=== PATIENT | male | born 1970 | race African-American/Black ===

== ENCOUNTER 2017-09-09 08:25 | Emergency (ER) | payer BC ==
[~2017-09-09] VITALS: Ht 180.3 cm; Wt 142.9 kg
[2017-09-09 08:57] VITALS: BP 149/76
[2017-09-09] MEDS ORDERED: LIDOCAINE 1% PF 2 ML VIAL. INJ ONE (09:00)
[2017-09-09] MEDS ORDERED: SULF1TAB24 PO (09:23)
[2017-09-09] MEDS ORDERED: NAPR-683 PO (09:23)
--- NOTE | 2017-09-09 09:23 | PHYS DOC ---
Past Medical History Past Medical History: Hypertension Past Surgical History: Other Additional Past Surgical Histo: Lesion removed from head Additional Information: 0.5 PPD Alcohol Use: Occasionally Drug Use: None Adult General Chief Complaint Chief Complaint: ABSCESS HPI HPI Patient is a 46 year old male presents to the emergency department with a one- day history of abscess on the left medial thigh. Patient states he's had the abscess present for several weeks that comes and goes but last night it became more painful. He reports no fever. Review of Systems Review of Systems Constitutional: Denies fever or chills [] Eyes: Denies change in visual acuity, redness, or eye pain [] HENT: Denies nasal congestion or sore throat [] Respiratory: Denies cough or shortness of breath [] Cardiovascular: No additional information not addressed in HPI [] GI: Denies abdominal pain, nausea, vomiting, bloody stools or diarrhea [] : Denies dysuria or hematuria [] Musculoskeletal: Denies back pain or joint pain [] Integument: Abscess Neurologic: Denies headache, focal weakness or sensory changes [] Endocrine: Denies polyuria or polydipsia [] All other systems were reviewed and found to be within normal limits, except as documented in this note. Current Medications Current Medications Current Medications Medications (Trade) Dose Ordered Sig/Gina Start Time Stop Time Status Last Admin Dose Admin Lidocaine HCl (Xylocaine-Mpf 1% Vial) 2 ml 1X ONCE 09/09/17 09:00 09/09/17 09:02 DC 09/09/17 09:17 2 ML Allergies Allergies Allergies Coded Allergies Type Severity Reaction Last Updated Verified Penicillins Allergy Intermediate 05/30/15 Yes Physical Exam Physical Exam Constitutional: Well developed, well nourished, no acute distress, non-toxic appearance. [] Cardiovascular:Heart rate regular rhythm, no murmur [] Lungs & Thorax: Bilateral breath sounds clear to auscultation [] Skin: Medial thigh, 3 cm area of induration with mild erythema. There is a 1 cm central area of fluctuance. Lymph: no gross adenopathy Current Patient Data Vital Signs Vital Signs Date Time Temp Pulse Resp B/P (MAP) Pulse Ox O2 Delivery O2 Flow Rate FiO2 09/09/17 08:57 97.4 85 24 149/76 (100) 97 Room Air 97.4 EKG EKG [] Radiology/Procedures Radiology/Procedures [] Course & Med Decision Making Course & Med Decision Making Pertinent Labs and Imaging studies reviewed. (See chart for details) []Procedure Note: Area cleansed with Betadine, anesthetized with 2 mL of 1% lidocaine. #11 blade to incise the abscess for small amount of purulent discharge. Copiously irrigated, dressing applied Patient tolerated well. Dragon Disclaimer Dragon Disclaimer This electronic medical record was generated, in whole or in part, using a voice recognition dictation system. Departure Departure Impression: Primary Impression: Abscess Disposition: HOME, SELF-CARE Condition: STABLE Referrals: UNKNOWN PCP NAME (PCP) [facility] Patient Instructions: Abscess, Care After Scripts Naproxen (NAPROSYN) 500 Mg Tablet 500 MG PO BID, #20 TAB Prov: ANAIS ARTHUR APRN 09/09/17 Sulfamethoxazole/Trimethoprim (BACTRIM DS TABLET) 1 Each Tablet 1 TAB PO BID, #20 TAB Prov: ANAIS ARTHUR APRN 09/09/17 ANAIS ATRHUR APRN Sep 09, 2017 09:23
== END 2017-09-09 09:39 | disposition home or self-care (01) ==
LOC: ER 08:25
DX: L02.416 Cutaneous abscess of left lower limb (principal); I10 Essential (primary) hypertension; F17.200 Nicotine dependence, unspecified, uncomplicated; Z88.0 Allergy status to penicillin
CPT/HCPCS: 10060; 99283-25

== ENCOUNTER 2018-01-02 17:39 | Emergency (ER) | payer SELFPAY ==
[2018-01-02 18:05] LABS: ADD MAN DIFF? NO
[2018-01-02 18:09] LABS: BASO # 0.1 x10^3/uL (0.0-0.2); BASO % 1 % (0-3); EOS # 0.1 x10^3/uL (0.0-0.7); EOS % 1 % (0-3); HEMATOCRIT 48.1 % (39.0-53.0); HEMOGLOBIN 16.1 g/dL (13.0-17.5); LYMPH % 33 % (24-48); MEAN CORPUSCULAR HEMOGLOBIN 29 pg (25-35); MEAN CORPUSCULAR HGB CONC 33 g/dL (31-37); MEAN CORPUSCULAR VOLUME 87 fL (79-100); MONO # 0.5 x10^3/uL (0.0-1.1); MONO % 6 % (0-9); NEUT # 5.5 x10^3uL (1.8-7.7); NEUT % 60 % (31-73); PLATELET COUNT 227 x10^3/uL (140-400); RED BLOOD COUNT 5.53 x10^6/uL (4.30-5.70); RED CELL DISTRIBUTION WIDTH 14.9 % (11.5-14.5); WHITE BLOOD COUNT 9.2 x10^3/uL (4.0-11.0)
[2018-01-02 18:15] LABS: ANION GAP 10 (6-14); BLOOD UREA NITROGEN 18 mg/dL (8-26); BUN/CREATININE RATIO 13 (6-20); CALCIUM 9.5 mg/dL (8.5-10.1); CARBON DIOXIDE 27 mmol/L (21-32); CHLORIDE 101 mmol/L (98-107); CREATININE 1.4 mg/dL (0.7-1.3); GFR 65.7; GLUCOSE 107 mg/dL (70-99); POTASSIUM 3.8 mmol/L (3.5-5.1); SODIUM 138 mmol/L (136-145)
[2018-01-02] MEDS: IV NORMAL SALINE 1000ML BAG 1,000 ML IV (18:15)
[2018-01-02] MEDS: ONDANSETRON PF 4 MG/2 ML VIAL. IV (18:15)
[2018-01-02 18:21] LABS: ALBUMIN 3.9 g/dL (3.4-5.0); ALBUMIN/GLOBULIN RATIO 0.9 (1.0-1.7); ALK PHOS 60 U/L (46-116); ALT (SGPT) 38 U/L (16-63); AST (SGOT) 23 U/L (15-37); LIPASE 241 U/L (73-393); TOTAL BILIRUBIN 0.5 mg/dL (0.2-1.0); TOTAL PROTEIN 8.3 g/dL (6.4-8.2)
[2018-01-02 19:03] LABS: BILIRUBIN,URINE NEGATIVE (NEG); CLARITY,URINE CLEAR; COLOR,URINE YELLOW; GLUCOSE,URINE NEGATIVE (NEG); NITRITE,URINE NEGATIVE (NEG); PH,URINE 5.5; PROTEIN,URINE NEGATIVE (NEG-TRACE); UROBILINOGEN,URINE 0.2 mg/dL (0.2 mg/dL)
[2018-01-02 19:14] LABS: BACTERIA,URINE 0 /HPF (0-FEW); RBC,URINE 0 /HPF (0-2); WBC,URINE OCC /HPF (0-4)
== END 2018-01-02 20:31 | disposition home or self-care (01) ==
LOC: ER 17:39
DX: R11.2 Nausea with vomiting, unspecified (principal); R19.7 Diarrhea, unspecified; I10 Essential (primary) hypertension; E66.9 Obesity, unspecified; Z88.0 Allergy status to penicillin; Z68.42 Body mass index [BMI] 45.0-49.9, adult
CPT/HCPCS: 36415; 80053; 81001; 83690; 85025; 96361; 96374; 99284-25; J2405; J7030

== ENCOUNTER 2018-04-29 20:17 | Emergency (ER) | payer BC ==
[2018-04-29 21:27] LABS: BILIRUBIN,URINE NEGATIVE (NEG); CLARITY,URINE CLEAR; COLOR,URINE YELLOW; GLUCOSE,URINE NEGATIVE (NEG); NITRITE,URINE NEGATIVE (NEG); PH,URINE 5.5; PROTEIN,URINE NEGATIVE (NEG-TRACE); UROBILINOGEN,URINE 0.2 mg/dL (0.2 mg/dL)
[2018-04-29] MEDS: IV NORMAL SALINE 1000ML BAG 1,000 ML IV (21:30)
[2018-04-29 21:36] LABS: ADD MAN DIFF? NO
[2018-04-29 21:41] LABS: BASO % 1 % (0-3); EOS # 0.1 x10^3/uL (0.0-0.7); EOS % 1 % (0-3); HEMATOCRIT 45.5 % (39.0-53.0); HEMOGLOBIN 15.1 g/dL (13.0-17.5); LYMPH # 2.5 x10^3/uL (1.0-4.8); LYMPH % 24 % (24-48); MEAN CORPUSCULAR HEMOGLOBIN 29 pg (25-35); MEAN CORPUSCULAR HGB CONC 33 g/dL (31-37); MEAN CORPUSCULAR VOLUME 86 fL (79-100); MONO # 0.6 x10^3/uL (0.0-1.1); MONO % 6 % (0-9); NEUT # 7.3 x10^3uL (1.8-7.7); NEUT % 69 % (31-73); PLATELET COUNT 206 x10^3/uL (140-400); RED BLOOD COUNT 5.28 x10^6/uL (4.30-5.70); RED CELL DISTRIBUTION WIDTH 14.2 % (11.5-14.5); WHITE BLOOD COUNT 10.5 x10^3/uL (4.0-11.0)
[2018-04-29 21:43] LABS: BACTERIA,URINE 0 /HPF (0-FEW); RBC,URINE 20-40 /HPF (0-2); WBC,URINE 0 /HPF (0-4)
[2018-04-29 21:50] LABS: ANION GAP 9 (6-14); BLOOD UREA NITROGEN 21 mg/dL (8-26); BUN/CREATININE RATIO 16 (6-20); CALCIUM 8.9 mg/dL (8.5-10.1); CARBON DIOXIDE 25 mmol/L (21-32); CHLORIDE 103 mmol/L (98-107); CREATININE 1.3 mg/dL (0.7-1.3); GFR 71.6; GLUCOSE 141 mg/dL (70-99); POTASSIUM 4.2 mmol/L (3.5-5.1); SODIUM 137 mmol/L (136-145)
[2018-04-29 21:55] LABS: ALBUMIN 3.4 g/dL (3.4-5.0); ALBUMIN/GLOBULIN RATIO 0.9 (1.0-1.7); ALK PHOS 63 U/L (46-116); ALT (SGPT) 30 U/L (16-63); AST (SGOT) 22 U/L (15-37); TOTAL BILIRUBIN 0.4 mg/dL (0.2-1.0); TOTAL PROTEIN 7.3 g/dL (6.4-8.2)
== END 2018-04-29 23:33 | disposition home or self-care (01) ==
LOC: ER 20:17
DX: N40.0 Benign prostatic hyperplasia without lower urinary tract symptoms (principal); I10 Essential (primary) hypertension; R39.198 Other difficulties with micturition; R31.9 Hematuria, unspecified; F32.9 Major depressive disorder, single episode, unspecified; K21.9 Gastro-esophageal reflux disease without esophagitis; Z88.0 Allergy status to penicillin
CPT/HCPCS: 36415; 51701; 76870; 80053; 81001; 85025; 99285-25; J7030

== ENCOUNTER 2019-02-23 10:49 | Inpatient (IN) | payer BC ==
[~2019-02-23] VITALS: Ht 180.3 cm; Wt 147.6 kg
[~2019-02-23 10:49] MED LIST: NAPR-683 PO; ONDA4TAB12 PO; SULF1TAB24 PO; TAMS0.4C97 PO
[2019-02-23] MEDS ORDERED: IPRATRPIUM/ALBUTEROL 0.5/2.5MG 3 ML NEBU. NEB ONE (11:15)
[2019-02-23] MEDS ORDERED: methylPREDNISolone SOD SUCC PF 125 MG/2 ML VIAL. IV ONE (11:15)
[2019-02-23] MEDS ORDERED: MORPHINE SULFATE 4 MG/ML VIAL. IV/SQ PRN (11:15)
[2019-02-23] MEDS ORDERED: ASPIRIN 325 MG TABLET PO ONE (11:15)
[2019-02-23 11:17] LABS: BASO # 0.1 x10^3/uL (0.0-0.2); BASO % 1 % (0-3); EOS # 0.1 x10^3/uL (0.0-0.7); EOS % 1 % (0-3); HEMATOCRIT 48.6 % (39.0-53.0); HEMOGLOBIN 16.2 g/dL (13.0-17.5); LYMPH # 2.5 x10^3/uL (1.0-4.8); LYMPH % 31 % (24-48); MEAN CORPUSCULAR HEMOGLOBIN 29 pg (25-35); MEAN CORPUSCULAR HGB CONC 33 g/dL (31-37); MEAN CORPUSCULAR VOLUME 87 fL (79-100); MONO # 0.6 x10^3/uL (0.0-1.1); MONO % 8 % (0-9); NEUT # 4.8 x10^3uL (1.8-7.7); NEUT % 59 % (31-73); PLATELET COUNT 200 x10^3/uL (140-400); RED BLOOD COUNT 5.61 x10^6/uL (4.30-5.70); RED CELL DISTRIBUTION WIDTH 14.5 % (11.5-14.5); WHITE BLOOD COUNT 8.1 x10^3/uL (4.0-11.0)
--- NOTE | 2019-02-23 11:23 | EKG ---
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
[2019-02-23 11:31] LABS: PROTHROMBIN TIME PATIENT 12.1 SEC (11.7-14.0)
[2019-02-23 11:34] LABS: CALCIUM 9.4 mg/dL (8.5-10.1); CREATININE 1.3 mg/dL (0.7-1.3); GFR 71.3; POTASSIUM 4.4 mmol/L (3.5-5.1)
[2019-02-23 11:39] LABS: D-DIMER 0.37 ug/mlFEU (0.00-0.50)
[2019-02-23 11:44] LABS: BASE EXCESS COOX 0 mmol/L (-3-3); HCO3 COOX 23 mmol/L (21-28); METHEMOGLOBIN 0.5 % (0.0-1.9); OXYHEMOGLOBIN 93.1 %; PCO2 COOX 34 mmHg (35-46); PO2 COOX 88 mmHg (75-108); SAT O2 COOX 97 % (92-99)
[2019-02-23 11:47] LABS: ALBUMIN 3.6 g/dL (3.4-5.0); TOTAL BILIRUBIN 0.3 mg/dL (0.2-1.0); TOTAL PROTEIN 7.3 g/dL (6.4-8.2)
--- NOTE | 2019-02-23 11:48 | RAD ---
PORTABLE CHEST 1V History: Shortness of breath No comparison Lung volumes. This likely accounts for mild cardiac silhouette widening. No evidence of pneumothorax, pleural effusion or infiltrate. IMPRESSION: Low lung volumes, no evidence of consolidating infiltrate. Electronically signed by: Faizan Campos MD (02/23/2019 11:45 AM) [facility]
--- NOTE | 2019-02-23 12:32 | PHYS DOC ---
Past Medical History Past Medical History: Depression, Diabetes-Type II, GERD, Hypertension Past Surgical History: Other Additional Past Surgical Histo: Lesion removed from head, LEFT HAND Additional Information: 4 CIGARETTES A DAY Alcohol Use: Occasionally Drug Use: None Adult General Chief Complaint Chief Complaint: SHORTNESS OF BREATH HPI HPI Patient is a 48 year old male with history of smoking, diabetes, hypertension, acid reflex, who presents to the ED today complaining of shortness of breath that woke him up at 4 AM this morning. Patient denies anything specifically excessive bleeding or relieving his symptoms. Denies any chest pain. He states he has had similar symptoms a couple years ago when his blood pressure was high but he is currently on blood pressure medications. Review of Systems Review of Systems Constitutional: Denies fever or chills [] Eyes: Denies change in visual acuity, redness, or eye pain [] HENT: Denies nasal congestion or sore throat [] Respiratory: Reports shortness of breath. Denies cough Cardiovascular: No additional information not addressed in HPI [] GI: Denies abdominal pain, nausea, vomiting, bloody stools or diarrhea [] : Denies dysuria or hematuria [] Musculoskeletal: Denies back pain or joint pain [] Integument: Denies rash or skin lesions [] Neurologic: Denies headache, focal weakness or sensory changes [] All other systems were reviewed and found to be within normal limits, except as documented in this note. Current Medications Current Medications Current Medications Medications (Trade) Dose Ordered Sig/Gina Start Time Stop Time Status Last Admin Dose Admin Albuterol/ Ipratropium (Duoneb) 3 ml 1X ONCE 02/23/19 11:15 02/23/19 11:16 DC 02/23/19 11:19 3 ML Aspirin (Jonathan Aspirin) 325 mg 1X ONCE 02/23/19 11:15 02/23/19 11:16 DC 02/23/19 11:25 325 MG Methylprednisolone Sodium Succinate (SOLU-Medrol 125MG VIAL) 125 mg 1X ONCE 02/23/19 11:15 02/23/19 11:16 DC 02/23/19 11:25 125 MG Morphine Sulfate (Morphine Sulfate) 4 mg PRN Q15MIN PRN 02/23/19 11:15 02/24/19 11:14 02/23/19 11:33 4 MG Allergies Allergies Allergies Coded Allergies Type Severity Reaction Last Updated Verified Penicillins Allergy Intermediate 05/30/15 Yes Physical Exam Physical Exam Constitutional: Obese patient no acute distress, non-toxic appearance. [] HENT: Normocephalic, atraumatic, bilateral external ears normal, oropharynx moist, no oral exudates, nose normal. [] Eyes: PERRLA, EOMI, conjunctiva normal, no discharge. [] Neck: Normal range of motion, no tenderness, supple, no stridor. [] Cardiovascular:Heart rate regular rhythm, no murmur [] Lungs & Thorax: Slight Decrease air movement to posterior lung bases. Abdomen: Bowel sounds normal, soft, no tenderness, no masses, no pulsatile masses. [] Skin: Warm, dry, no erythema, no rash. [] Back: No tenderness, no CVA tenderness. [] Extremities: No tenderness, no cyanosis, no clubbing, ROM intact, no edema. [] Neurologic: Alert and oriented X 3, normal motor function, normal sensory function, no focal deficits noted. [] Psychologic: Affect normal, judgement normal, mood normal. [] Current Patient Data Vital Signs Vital Signs Date Time Temp Pulse Resp B/P (MAP) Pulse Ox O2 Delivery O2 Flow Rate FiO2 02/23/19 11:56 106 27 176/83 (114) 95 Room Air 02/23/19 10:51 98.3 98.3 Lab Values Laboratory Tests Test 02/23/19 11:03 02/23/19 11:10 O2 Saturation 97 % (92-99) Arterial Blood pH 7.45 (7.35-7.45) Arterial Blood pCO2 at Patient Temp 34 mmHg (35-46) L Arterial Blood pO2 at Patient Temp 88 mmHg (75-108) Arterial Blood HCO3 23 mmol/L (21-28) Arterial Blood Base Excess 0 mmol/L (-3-3) Oxyhemoglobin 93.1 % Methemoglobin 0.5 % (0.0-1.9) Carbon Monoxide, Quantitative 3.8 % (0.0-1.9) H FiO2 21 White Blood Count 8.1 x10^3/uL (4.0-11.0) Red Blood Count 5.61 x10^6/uL (4.30-5.70) Hemoglobin 16.2 g/dL (13.0-17.5) Hematocrit 48.6 % (39.0-53.0) Mean Corpuscular Volume 87 fL (79-100) Mean Corpuscular Hemoglobin 29 pg (25-35) Mean Corpuscular Hemoglobin Concent 33 g/dL (31-37) Red Cell Distribution Width 14.5 % (11.5-14.5) Platelet Count 200 x10^3/uL (140-400) Neutrophils (%) (Auto) 59 % (31-73) Lymphocytes (%) (Auto) 31 % (24-48) Monocytes (%) (Auto) 8 % (0-9) Eosinophils (%) (Auto) 1 % (0-3) Basophils (%) (Auto) 1 % (0-3) Neutrophils # (Auto) 4.8 x10^3uL (1.8-7.7) Lymphocytes # (Auto) 2.5 x10^3/uL (1.0-4.8) Monocytes # (Auto) 0.6 x10^3/uL (0.0-1.1) Eosinophils # (Auto) 0.1 x10^3/uL (0.0-0.7) Basophils # (Auto) 0.1 x10^3/uL (0.0-0.2) Prothrombin Time 12.1 SEC (11.7-14.0) Prothrombin Time INR 0.9 (0.8-1.1) D-Dimer (Nasrin) 0.37 ug/mlFEU (0.00-0.50) Sodium Level 139 mmol/L (136-145) Potassium Level 4.4 mmol/L (3.5-5.1) Chloride Level 103 mmol/L (98-107) Carbon Dioxide Level 25 mmol/L (21-32) Anion Gap 11 (6-14) Blood Urea Nitrogen 19 mg/dL (8-26) Creatinine 1.3 mg/dL (0.7-1.3) Estimated GFR (Cockcroft-Gault) 71.3 BUN/Creatinine Ratio 15 (6-20) Glucose Level 108 mg/dL (70-99) H Lactic Acid Level 1.4 mmol/L (0.4-2.0) Calcium Level 9.4 mg/dL (8.5-10.1) Magnesium Level 2.0 mg/dL (1.8-2.4) Total Bilirubin 0.3 mg/dL (0.2-1.0) Aspartate Amino Transferase (AST) 18 U/L (15-37) Alanine Aminotransferase (ALT) 28 U/L (16-63) Alkaline Phosphatase 72 U/L (46-116) Creatine Kinase 232 U/L (39-308) Creatine Kinase MB (Mass) 1.8 ng/mL (0.0-3.6) Creatine Kinase MB Relative Index 0.8 % (0-4) Troponin I Quantitative < 0.017 ng/mL (0.000-0.055) RS-Itf-A-Type Natriuretic Peptide 14 pg/mL (0-124) Total Protein 7.3 g/dL (6.4-8.2) Albumin 3.6 g/dL (3.4-5.0) Albumin/Globulin Ratio 1.0 (1.0-1.7) Thyroid Stimulating Hormone (TSH) 0.654 uIU/mL (0.358-3.74) Laboratory Tests 02/23/19 11:10 Laboratory Tests 02/23/19 11:10 EKG EKG 10:[address] Kennedy sinus rhythm HR 96 no STEMI Radiology/Procedures Radiology/Procedures []PROCEDURE: PORTABLE CHEST 1V PORTABLE CHEST 1V History: Shortness of breath No comparison Lung volumes. This likely accounts for mild cardiac silhouette widening. No evidence of pneumothorax, pleural effusion or infiltrate. IMPRESSION: Low lung volumes, no evidence of consolidating infiltrate. Electronically signed by: Faizan Campos MD (02/23/2019 11:45 AM) [facility] DICTATED and SIGNED BY: FAIZAN CAMPOS MD DATE: 02/23/19 1140 Course & Med Decision Making Course & Med Decision Making Pertinent Labs and Imaging studies reviewed. (See chart for details) This is a 48-year-old male patient presented to the ED today complaining of shortness of breath since 4 AM. Patient ambulated from the waiting area to his room in no distress, O2 sats on arrival to the room 196% on room air, blood pressure was 182/100 he states he just took his blood pressure medicine prior to coming to the ED. Temperature 98.3 respiration 26, heart rate 70. EKG is negative for any acute findings, labs are negative for any acute findings including a normal d-dimer, chest x-ray is negative for pneumonia. Patient was given a DuoNeb treatment. Given Solu-Medrol. I went to re-evaluate his states he is feeling better he was willing to go home. As soon as i walked out of his room he called me back to the room requesting to be admitted. He states is afraid he can go home and something bad might happen like passing out. Spoke with Dr. Aldridge who accepted patient for admission. Encouraged to consider smoking cessation Dragon Disclaimer Dragon Disclaimer This electronic medical record was generated, in whole or in part, using a voice recognition dictation system. Departure Departure Impression: Primary Impression: Shortness of breath Additional Impressions: Hypertension Smoking addiction Disposition: ADMITTED INPATIENT Condition: STABLE Referrals: UNKNOWN PCP NAME (PCP) Problem Qualifiers Additional Impressions: Hypertension Hypertension type: unspecified Qualified Codes: I10 - Essential (primary) hypertension GARCÍA DIANE APRN Feb 23, 2019 12:32
[2019-02-23] MEDS ORDERED: ACETAMINOPHEN 325 MG TABLET. PO PRN ×2 (12:45→17:15)
[2019-02-23] MEDS ORDERED: ONDANSETRON PF 4 MG/2 ML VIAL. IV PRN (12:45)
[2019-02-23] MEDS: IPRATRPIUM/ALBUTEROL 0.5/2.5MG 3 ML NEBU. NEB SCH ×3 (13:00→20:00)
[2019-02-23 13:46] LABS: BARBITURATES NEG (NEG); BENZODIAZEPINES NEG (NEG); CANNABINOIDS NEG (NEG); COCAINE POS (NEG); METHADONE NEG (NEG); OPIATES POS (NEG); PHENCYCLIDINE NEG (NEG)
[2019-02-23 13:56] LABS: AMPHETAMINE/METHAMPHETAMINE NEG (NEG)
[2019-02-23 14:00] VITALS: BP 162/102
[2019-02-23] MEDS ORDERED: ENOXAPARIN 40 MG/0.4 ML SYRINGE. SQ SCH (16:00)
--- NOTE | 2019-02-23 16:04 | PDOC1 ---
History and Physical Date of Admission Date of Admission DATE: 02/23/19 TIME: 15:59 Source Source: Caregiver (), Chart review, Patient History of Present Illness History of Present Illness Mr. Nunez, is a 48 year old male admit for acute dyspnea, some chest pain, and transient left sided weakness. he has hx of poor htn control, tobacco use, and GERD, Today, acute shortness of breath that woke him up at 4 AM this morning. He later had sudden left shoulder pain, and then left sided weakness of his arm and leg that is now better, poor mobility for about 20 minutes. he reports having this happen on his right side about a month ago. he reports his BP has been poorly controlled PCP has been Dr. More at [place] Past Medical History Cardiovascular: HTN Pulmonary: No pertinent hx Psych: No pertinent hx Musculoskeletal: Osteoarthritis Dermatology: No pertinent hx Family History Family History: Coronary Artery Disease, Heart Disease, Stroke Family History: Parent, Grandparents Social History Smoke: <1 pack per day ALCOHOL: none Drugs: Cocaine Current Problem List Problem List Problems Medical Problems: (1) Hypertension Status: Acute (2) Shortness of breath Status: Acute (3) Smoking addiction Status: Acute Current Medications Current Medications Current Medications Albuterol/ Ipratropium (Duoneb) 3 ml 1X ONCE NEB Last administered on 02/23/19at 11:19; Start 02/23/19 at 11:15; Stop 02/23/19 at 11:16; Status DC Aspirin (Jonathan Aspirin) 325 mg 1X ONCE PO Last administered on 02/23/19at 11:25; Start 02/23/19 at 11:15; Stop 02/23/19 at 11:16; Status DC Morphine Sulfate (Morphine Sulfate) 4 mg PRN Q15MIN PRN IV/SQ PAIN GREATER THAN 3/10 Last administered on 02/23/19at 11:33; Start 02/23/19 at 11:15; Stop 02/24/19 at 11:14 Methylprednisolone Sodium Succinate (SOLU-Medrol 125MG VIAL) 125 mg 1X ONCE IV Last administered on 02/23/19at 11:25; Start 02/23/19 at 11:15; Stop 02/23/19 at 11:16; Status DC Ondansetron HCl (Zofran) 4 mg PRN Q8HRS PRN IV NAUSEA/VOMITING; Start 02/23/19 at 12:45; Stop 02/24/19 at 12:44 Acetaminophen (Tylenol) 650 mg PRN Q4HRS PRN PO FEVER; Start 02/23/19 at 12:45; Stop 02/24/19 at 12:44 Albuterol/ Ipratropium (Duoneb) 3 ml RTQID NEB Last administered on 02/23/19at 15:34; Start 02/23/19 at 13:00; Stop 02/24/19 at 12:59 Prednisone (Prednisone) 40 mg DAILY PO ; Start 02/24/19 at 09:00 Active Scripts Active Flomax (Tamsulosin Hcl) 0.4 Mg Cap.er.24h 1 Cap PO DAILY 30 Days Ondansetron Odt (Ondansetron) 4 Mg Tab.rapdis 1 Tab PO PRN Q6-8HRS Naprosyn (Naproxen) 500 Mg Tablet 500 Mg PO BID Bactrim Ds Tablet (Sulfamethoxazole/Trimethoprim) 1 Each Tablet 1 Tab PO BID Reported No Known Medications Prior To Admisstion (Info) Each 1 Each Allergies Allergies: Coded Allergies: Penicillins (Verified Allergy, Intermediate, 05/30/15) ROS General: YES: Chills PSYCHOLOGICAL ROS: YES: Anxiety, Sleep disturbances; No: Behavioral Disorder, Concentration difficultie, Decreased libido, Depression, Disorientation, Hallucinations, Hostility, Irritablity, Memory difficulties, Mood Swings, Obsessive thoughts, Other Eyes: No Blurry vision, No Decreased vision, No Double vision, No Dry eyes, No Excessive tearing, No Eye Pain, No Itchy Eyes, No Loss of vision, No Photophobia, No Scotomata, No Uses contacts, No Uses glasses, No Other HEENT: No: Heacaches, Visual Changes, Hearing change, Nasal congestion, Nasal discharge, Oral lesions, Sinus pain, Sore Throat, Epistaxis, Sneezing, Snoring, Tinnitus, Vertigo, Vocal changes, Other Respiratory: No: Cough, Hemoptysis, Orthopnea, Pleuritic Pain, Shortness of breath, SOB with excertion, Sputum Changes, Stridor, Tachypnea, Wheezing, Other Cardiovascular: yes Chest Pain; No Palpitations, No Orthopnea, No Paroxysmal Noc. Dyspnea, No Edema, No Lt Headedness, No Other Gastrointestinal: Yes Nausea; No Vomiting, No Abdominal Pain, No Diarrhea, No Constipation, No Melena, No Hematochezia, No Other Genitourinary: No Dysuria, No Frequency, No Incontinence, No Hematuria, No Retention, No Discharge, No Urgency, No Pain, No Flank Pain, No Other, No , No , No , No , No , No , No Musculoskeletal: Yes Muscular Weakness (left side); No Gait Disturbance, No Joint Pain, No Joint Stiffness, No Joint Swelling, No Muscle Pain, No Pain In:, No Swelling In:, No Other Neurological: No Behavorial Changes, No Bowel/Bladder ControlChng, No Confusion, No Dizziness, No Gait Disturbance, No Headaches, No Impaired Coord/balance, No Memory Loss, No Numbness/Tingling, No Seizures, No Speech Problems, No Tremors, No Visual Changes, No Weakness, No Other Skin: Yes Dry Skin; No Eczema, No Hair Changes, No Lumps, No Mole Changes, No Mottling, No Nail Changes, No Pruritus, No Rash, No Skin Lesion Changes, No Other, No Acne Physical Exam General: Alert, Oriented X3, Cooperative, No acute distress HEENT: Atraumatic, PERRLA, Mucous membr. moist/pink Lungs: Clear to auscultation, Normal air movement Heart: S1S2, RRR, no gallops Abdomen: Normal bowel sounds, Soft (very obese, ) Extremities: No clubbing, No edema, Normal pulses Skin: No breakdown Neuro: Normal speech, Normal tone, Sensation intact, Cranial nerves 3-12 NL Psych/Mental Status: Mental status NL, Mood NL Vitals Vitals Vital Signs Date Time Temp Pulse Resp B/P (MAP) Pulse Ox O2 Delivery O2 Flow Rate FiO2 02/23/19 15:40 95 Room Air 02/23/19 14:00 98.2 82 16 162/102 (122) 98.2 Labs Labs Laboratory Tests Test 02/23/19 11:03 02/23/19 11:10 02/23/19 13:15 02/23/19 15:01 O2 Saturation 97 % (92-99) Arterial Blood pH 7.45 (7.35-7.45) Arterial Blood pCO2 at Patient Temp 34 mmHg (35-46) Arterial Blood pO2 at Patient Temp 88 mmHg (75-108) Arterial Blood HCO3 23 mmol/L (21-28) Arterial Blood Base Excess 0 mmol/L (-3-3) Oxyhemoglobin 93.1 % Methemoglobin 0.5 % (0.0-1.9) Carbon Monoxide, Quantitative 3.8 % (0.0-1.9) FiO2 21 White Blood Count 8.1 x10^3/uL (4.0-11.0) Red Blood Count 5.61 x10^6/uL (4.30-5.70) Hemoglobin 16.2 g/dL (13.0-17.5) Hematocrit 48.6 % (39.0-53.0) Mean Corpuscular Volume 87 fL (79-100) Mean Corpuscular Hemoglobin 29 pg (25-35) Mean Corpuscular Hemoglobin Concent 33 g/dL (31-37) Red Cell Distribution Width 14.5 % (11.5-14.5) Platelet Count 200 x10^3/uL (140-400) Neutrophils (%) (Auto) 59 % (31-73) Lymphocytes (%) (Auto) 31 % (24-48) Monocytes (%) (Auto) 8 % (0-9) Eosinophils (%) (Auto) 1 % (0-3) Basophils (%) (Auto) 1 % (0-3) Neutrophils # (Auto) 4.8 x10^3uL (1.8-7.7) Lymphocytes # (Auto) 2.5 x10^3/uL (1.0-4.8) Monocytes # (Auto) 0.6 x10^3/uL (0.0-1.1) Eosinophils # (Auto) 0.1 x10^3/uL (0.0-0.7) Basophils # (Auto) 0.1 x10^3/uL (0.0-0.2) Prothrombin Time 12.1 SEC (11.7-14.0) Prothromb Time International Ratio 0.9 (0.8-1.1) D-Dimer (Nasrin) 0.37 ug/mlFEU (0.00-0.50) Sodium Level 139 mmol/L (136-145) Potassium Level 4.4 mmol/L (3.5-5.1) Chloride Level 103 mmol/L (98-107) Carbon Dioxide Level 25 mmol/L (21-32) Anion Gap 11 (6-14) Blood Urea Nitrogen 19 mg/dL (8-26) Creatinine 1.3 mg/dL (0.7-1.3) Estimated GFR (Cockcroft-Gault) 71.3 BUN/Creatinine Ratio 15 (6-20) Glucose Level 108 mg/dL (70-99) Lactic Acid Level 1.4 mmol/L (0.4-2.0) 1.6 mmol/L (0.4-2.0) Calcium Level 9.4 mg/dL (8.5-10.1) Magnesium Level 2.0 mg/dL (1.8-2.4) Total Bilirubin 0.3 mg/dL (0.2-1.0) Aspartate Amino Transf (AST/SGOT) 18 U/L (15-37) Alanine Aminotransferase (ALT/SGPT) 28 U/L (16-63) Alkaline Phosphatase 72 U/L (46-116) Creatine Kinase 232 U/L (39-308) Creatine Kinase MB (Mass) 1.8 ng/mL (0.0-3.6) Creatine Kinase MB Relative Index 0.8 % (0-4) Troponin I Quantitative < 0.017 ng/mL (0.000-0.055) YH-Dcc-H-Type Natriuretic Peptide 14 pg/mL (0-124) Total Protein 7.3 g/dL (6.4-8.2) Albumin 3.6 g/dL (3.4-5.0) Albumin/Globulin Ratio 1.0 (1.0-1.7) Thyroid Stimulating Hormone (TSH) 0.654 uIU/mL (0.358-3.74) Urine Opiates Screen Pos (NEG) Urine Methadone Screen Neg (NEG) Urine Barbiturates Neg (NEG) Urine Phencyclidine Screen Neg (NEG) Urine Amphetamine/Methamphetamine Neg (NEG) Urine Benzodiazepines Screen Neg (NEG) Urine Cocaine Screen Pos (NEG) Urine Cannabinoids Screen Neg (NEG) Urine Ethyl Alcohol Neg (NEG) Laboratory Tests Test 02/23/19 11:03 02/23/19 11:10 02/23/19 13:15 02/23/19 15:01 O2 Saturation 97 % (92-99) Arterial Blood pH 7.45 (7.35-7.45) Arterial Blood pCO2 at Patient Temp 34 mmHg (35-46) Arterial Blood pO2 at Patient Temp 88 mmHg (75-108) Arterial Blood HCO3 23 mmol/L (21-28) Arterial Blood Base Excess 0 mmol/L (-3-3) Oxyhemoglobin 93.1 % Methemoglobin 0.5 % (0.0-1.9) Carbon Monoxide, Quantitative 3.8 % (0.0-1.9) FiO2 21 White Blood Count 8.1 x10^3/uL (4.0-11.0) Red Blood Count 5.61 x10^6/uL (4.30-5.70) Hemoglobin 16.2 g/dL (13.0-17.5) Hematocrit 48.6 % (39.0-53.0) Mean Corpuscular Volume 87 fL (79-100) Mean Corpuscular Hemoglobin 29 pg (25-35) Mean Corpuscular Hemoglobin Concent 33 g/dL (31-37) Red Cell Distribution Width 14.5 % (11.5-14.5) Platelet Count 200 x10^3/uL (140-400) Neutrophils (%) (Auto) 59 % (31-73) Lymphocytes (%) (Auto) 31 % (24-48) Monocytes (%) (Auto) 8 % (0-9) Eosinophils (%) (Auto) 1 % (0-3) Basophils (%) (Auto) 1 % (0-3) Neutrophils # (Auto) 4.8 x10^3uL (1.8-7.7) Lymphocytes # (Auto) 2.5 x10^3/uL (1.0-4.8) Monocytes # (Auto) 0.6 x10^3/uL (0.0-1.1) Eosinophils # (Auto) 0.1 x10^3/uL (0.0-0.7) Basophils # (Auto) 0.1 x10^3/uL (0.0-0.2) Prothrombin Time 12.1 SEC (11.7-14.0) Prothromb Time International Ratio 0.9 (0.8-1.1) D-Dimer (Nasrin) 0.37 ug/mlFEU (0.00-0.50) Sodium Level 139 mmol/L (136-145) Potassium Level 4.4 mmol/L (3.5-5.1) Chloride Level 103 mmol/L (98-107) Carbon Dioxide Level 25 mmol/L (21-32) Anion Gap 11 (6-14) Blood Urea Nitrogen 19 mg/dL (8-26) Creatinine 1.3 mg/dL (0.7-1.3) Estimated GFR (Cockcroft-Gault) 71.3 BUN/Creatinine Ratio 15 (6-20) Glucose Level 108 mg/dL (70-99) Lactic Acid Level 1.4 mmol/L (0.4-2.0) 1.6 mmol/L (0.4-2.0) Calcium Level 9.4 mg/dL (8.5-10.1) Magnesium Level 2.0 mg/dL (1.8-2.4) Total Bilirubin 0.3 mg/dL (0.2-1.0) Aspartate Amino Transf (AST/SGOT) 18 U/L (15-37) Alanine Aminotransferase (ALT/SGPT) 28 U/L (16-63) Alkaline Phosphatase 72 U/L (46-116) Creatine Kinase 232 U/L (39-308) Creatine Kinase MB (Mass) 1.8 ng/mL (0.0-3.6) Creatine Kinase MB Relative Index 0.8 % (0-4) Troponin I Quantitative < 0.017 ng/mL (0.000-0.055) VI-Tgf-X-Type Natriuretic Peptide 14 pg/mL (0-124) Total Protein 7.3 g/dL (6.4-8.2) Albumin 3.6 g/dL (3.4-5.0) Albumin/Globulin Ratio 1.0 (1.0-1.7) Thyroid Stimulating Hormone (TSH) 0.654 uIU/mL (0.358-3.74) Urine Opiates Screen Pos (NEG) Urine Methadone Screen Neg (NEG) Urine Barbiturates Neg (NEG) Urine Phencyclidine Screen Neg (NEG) Urine Amphetamine/Methamphetamine Neg (NEG) Urine Benzodiazepines Screen Neg (NEG) Urine Cocaine Screen Pos (NEG) Urine Cannabinoids Screen Neg (NEG) Urine Ethyl Alcohol Neg (NEG) VTE Prophylaxis Ordered VTE Prophylaxis Devices: No VTE Pharmacological Prophylaxi: Yes Assessment/Plan Assessment/Plan chest pain, seems more costochrondritis than angina, left sided weakness, transient hemiparesis of arm and leg, now improved, TIA, consult neuro and workup morbid obesity, BMI 46 tobacco use disorder cocaine abuse EVELIO Peterson MD Feb 23, 2019 16:04
[2019-02-23] MEDS ORDERED: PANT20TA2 PO (16:12)
[2019-02-23] MEDS ORDERED: AMIT25TA PO (16:12)
[2019-02-23] MEDS ORDERED: METF500T16 PO (16:12)
[2019-02-23] MEDS ORDERED: hydrALAZINE 20 MG/ML VIAL. IVP PRN (16:15)
[2019-02-23] MEDS ORDERED: amLODIPine BESYLATE 10 MG TABLET PO SCH (16:30)
--- NOTE | 2019-02-23 16:58 | PDOC2 ---
CARDIAC CONSULT DATE OF CONSULT Date of Consult DATE: 02/23/19 TIME: 16:36 REASON FOR CONSULT Reason for Consult: chest pain, cocaine use, HTN REFERRING PHYSICIAN Referring Physician: Luis Carlos SOURCE Source: Chart review, Patient HISTORY OF PRESENT ILLNESS HISTORY OF PRESENT ILLNESS This is a pleasant 48 yo male admitted for multiple complains. Reports that starting this morning he started having weakness like he was dragging his LLE this morning and the other day it was his RLE thinking that this may been the way he was sleeping the other day. He does have occasional lower back pain. Also he was having left shoulder upper chest sharp pain which was stabbing and intermittent and sometimes spastic. It was painful for him when I touched it and moving his left shoulder as well which at this time his mobility is limited. No significant numbness or tingling. Reports also of SAUNDERS on both sides throbing all the way back with tenderness with palpation. No visual or auditory changes but accdg to spouse he was slurring his speech this morning. No facial droop. He has HTN which he takes HCTZ for. He also told me that he has borderline DM and takes metformin. He has stopped taking chronic NSAIDS due to renal insuffic iency. He has never been told of any CVA, TIA, seizures, migraine, CAD or arrhythmias nor VTE. No recent falls, injuries, pneumonia. 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 He is positive for opiates and cocaine which he denies using and the spouse is not aware. He is a heavy drinker of ETOH as well and has never been tested for MC. He has GERD which is controlled. No fever or chills. Positive for snoring, daytime SAUNDERS and midday somnolence. PAST MEDICAL HISTORY Cardiovascular: HTN Pulmonary: No pertinent hx CENTRAL NERVOUS SYSTEM: Other (No pertinent history) GI: GERD Heme/Onc: No pertinent hx Hepatobiliary: No pertinent hx Psych: Depression Musculoskeletal: Osteoarthritis Rheumatologic: No pertinent hx Infectious disease: No pertinent hx ENT: No pertinent hx Renal/: Chronic renal insuff Endocrine: Diabetes (borderline) PAST SURGICAL HISTORY Past Surgical History: Other (left finger cyst removal) FAMILY HISTORY Family History: Stroke (mother) SOCIAL HISTORY Smoke: <1 pack per day (>10 yrs) ALCOHOL: heavy (1/2 pint at least of voka and at least 2 bottles of budice) Drugs: Cocaine Lives: with Family CURRENT MEDICATIONS CURRENT MEDICATIONS Current Medications Medications (Trade) Dose Ordered Sig/Gina Route PRN Reason Start Time Stop Time Status Last Admin Dose Admin Albuterol/ Ipratropium (Duoneb) 3 ml 1X ONCE NEB 02/23/19 11:15 02/23/19 11:16 DC 02/23/19 11:19 Aspirin (Jonathan Aspirin) 325 mg 1X ONCE PO 02/23/19 11:15 02/23/19 11:16 DC 02/23/19 11:25 Morphine Sulfate (Morphine Sulfate) 4 mg PRN Q15MIN PRN IV/SQ PAIN GREATER THAN 3/10 02/23/19 11:15 02/24/19 11:14 02/23/19 11:33 Methylprednisolone Sodium Succinate (SOLU-Medrol 125MG VIAL) 125 mg 1X ONCE IV 02/23/19 11:15 02/23/19 11:16 DC 02/23/19 11:25 Albuterol/ Ipratropium (Duoneb) 3 ml RTQID NEB 02/23/19 13:00 02/24/19 12:59 02/23/19 15:34 ALLERGIES ALLERGIES: Coded Allergies: Penicillins (Verified Allergy, Intermediate, 05/30/15) ROS Review of System 14 point ROS evaluated with pertinent positives noted per HPI PHYSICAL EXAM General: Alert, Oriented X3, Cooperative, No acute distress HEENT: Atraumatic, Mucous membr. moist/pink, Other (cephalic tenderness generalized with palpation) Lungs: Clear to auscultation, Normal air movement Heart: Regular rate (SR per EKG), Normal S1, Normal S2, Other (3/6 systolic murmur to ARMANDO border) Abdomen: Soft, No tenderness, Other (obese) Extremities: No cyanosis, No edema Skin: No breakdown, No significant lesion Neuro: Normal speech, Sensation intact Psych/Mental Status: Mental status NL, Mood NL MUSCULOSKELETAL: Osteoarthritic changes both hands, Other (limited ROM to left shoulder and tenderness with neck mobility. ) VITALS VITALS Vital Signs Date Time Temp Pulse Resp B/P (MAP) Pulse Ox O2 Delivery O2 Flow Rate FiO2 02/23/19 15:40 95 Room Air 02/23/19 14:00 98.2 82 16 162/102 (122) 98.2 LABS Lab: Laboratory Tests Test 02/23/19 11:03 02/23/19 11:10 02/23/19 13:15 02/23/19 15:01 O2 Saturation 97 % (92-99) Arterial Blood pH 7.45 (7.35-7.45) Arterial Blood pCO2 at Patient Temp 34 mmHg (35-46) Arterial Blood pO2 at Patient Temp 88 mmHg (75-108) Arterial Blood HCO3 23 mmol/L (21-28) Arterial Blood Base Excess 0 mmol/L (-3-3) Oxyhemoglobin 93.1 % Methemoglobin 0.5 % (0.0-1.9) Carbon Monoxide, Quantitative 3.8 % (0.0-1.9) FiO2 21 White Blood Count 8.1 x10^3/uL (4.0-11.0) Red Blood Count 5.61 x10^6/uL (4.30-5.70) Hemoglobin 16.2 g/dL (13.0-17.5) Hematocrit 48.6 % (39.0-53.0) Mean Corpuscular Volume 87 fL (79-100) Mean Corpuscular Hemoglobin 29 pg (25-35) Mean Corpuscular Hemoglobin Concent 33 g/dL (31-37) Red Cell Distribution Width 14.5 % (11.5-14.5) Platelet Count 200 x10^3/uL (140-400) Neutrophils (%) (Auto) 59 % (31-73) Lymphocytes (%) (Auto) 31 % (24-48) Monocytes (%) (Auto) 8 % (0-9) Eosinophils (%) (Auto) 1 % (0-3) Basophils (%) (Auto) 1 % (0-3) Neutrophils # (Auto) 4.8 x10^3uL (1.8-7.7) Lymphocytes # (Auto) 2.5 x10^3/uL (1.0-4.8) Monocytes # (Auto) 0.6 x10^3/uL (0.0-1.1) Eosinophils # (Auto) 0.1 x10^3/uL (0.0-0.7) Basophils # (Auto) 0.1 x10^3/uL (0.0-0.2) Prothrombin Time 12.1 SEC (11.7-14.0) Prothromb Time International Ratio 0.9 (0.8-1.1) D-Dimer (Nasrin) 0.37 ug/mlFEU (0.00-0.50) Sodium Level 139 mmol/L (136-145) Potassium Level 4.4 mmol/L (3.5-5.1) Chloride Level 103 mmol/L (98-107) Carbon Dioxide Level 25 mmol/L (21-32) Anion Gap 11 (6-14) Blood Urea Nitrogen 19 mg/dL (8-26) Creatinine 1.3 mg/dL (0.7-1.3) Estimated GFR (Cockcroft-Gault) 71.3 BUN/Creatinine Ratio 15 (6-20) Glucose Level 108 mg/dL (70-99) Lactic Acid Level 1.4 mmol/L (0.4-2.0) 1.6 mmol/L (0.4-2.0) Calcium Level 9.4 mg/dL (8.5-10.1) Magnesium Level 2.0 mg/dL (1.8-2.4) Total Bilirubin 0.3 mg/dL (0.2-1.0) Aspartate Amino Transf (AST/SGOT) 18 U/L (15-37) Alanine Aminotransferase (ALT/SGPT) 28 U/L (16-63) Alkaline Phosphatase 72 U/L (46-116) Creatine Kinase 232 U/L (39-308) Creatine Kinase MB (Mass) 1.8 ng/mL (0.0-3.6) Creatine Kinase MB Relative Index 0.8 % (0-4) Troponin I Quantitative < 0.017 ng/mL (0.000-0.055) JC-Kkx-O-Type Natriuretic Peptide 14 pg/mL (0-124) Total Protein 7.3 g/dL (6.4-8.2) Albumin 3.6 g/dL (3.4-5.0) Albumin/Globulin Ratio 1.0 (1.0-1.7) Thyroid Stimulating Hormone (TSH) 0.654 uIU/mL (0.358-3.74) Urine Opiates Screen Pos (NEG) Urine Methadone Screen Neg (NEG) Urine Barbiturates Neg (NEG) Urine Phencyclidine Screen Neg (NEG) Urine Amphetamine/Methamphetamine Neg (NEG) Urine Benzodiazepines Screen Neg (NEG) Urine Cocaine Screen Pos (NEG) Urine Cannabinoids Screen Neg (NEG) Urine Ethyl Alcohol Neg (NEG) ASSESSMENT/PLAN ASSESSMENT/PLAN 1. Atypical CP: possibly MSK 2. SAUNDERS with CO poisoning, likely MC, cocaine use 3. 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 Morbid obesity 5. HTN: labile, multifactorial as above 6. Tobaccoism 7. Heavy alcoholism: daily 8. Substance abuse: +opiates and cocaine 9. Suspect MC 10. 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 Norvasc x1. Start chlorthalidone and lisinopril. Hydralazine IV PRN. 2. ASA. statin per lipid panel. 3. Neurology consult pending 4. Discussed with in regards to having there gas water heater checked. No CO monitors at home. Lifestyle modifications. 5. Smoking cessation, ETOH curbing. ETOH withdrawal treatment per PCP 6. Cocaine and opiate cessation. Pt denies this but +UDS. 7. Transfer to S for tele to rule out any arrhythmia in relation to cocaine. 8. trend trop, check lipids and A1C and check TTE. Will need oupt MC w/u SABRINA SCOTT SAAS ARCHITECT Feb 23, 2019 16:58
[2019-02-23] MEDS ORDERED: amLODIPine BESYLATE 5 MG TABLET PO ONE (17:00)
[2019-02-23] MEDS ORDERED: ACETAMINOPHEN 650 MG SUPP.RECT. PR PRN (17:15)
[2019-02-23] MEDS ORDERED: ASPIRIN RECTAL 300 MG SUPP. PR PRN (17:15)
--- NOTE | 2019-02-23 17:22 | PDOC2 ---
NEUROLOGY CONSULT Date of Admission Date of Admission DATE: 02/23/19 TIME: 17:08 Reason for Consult Reason for Consult: TIA Referring Physician Referring Physician: Dr. Aldridge PCP: Dr. Correia at [place] Source Source: Caregiver (), Chart review, Patient History of Present Illness History of Present Illness The patient is a 48-year-old left-handed male who woke up this morning with shortness of breath. Emergency room director of informatics there attention to this complaint. The patient told the cardiology nurse practitioner that he has been having some left-sided pain and weakness since this morning. Yesterday he had some right-sided numbness. A month ago he had some right-sided numbness. 2 months ago he had severe headaches without neurological symptoms and his primary physician obtained a brain MRI then, that was normal. The patient denies any prior history of stroke, seizure, or head injury. Blood pressure was 182/100 upon emergency room presentation. Past Medical History Cardiovascular: HTN Musculoskeletal: Osteoarthritis Renal/: Chronic renal insuff, Benign prostatic enlarg. 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 Current Medications Current Medications Current Medications Albuterol/ Ipratropium (Duoneb) 3 ml 1X ONCE NEB Last administered on 02/23/19at 11:19; Start 02/23/19 at 11:15; Stop 02/23/19 at 11:16; Status DC Aspirin (Jonathan Aspirin) 325 mg 1X ONCE PO Last administered on 02/23/19at 11:25; Start 02/23/19 at 11:15; Stop 02/23/19 at 11:16; Status DC Morphine Sulfate (Morphine Sulfate) 4 mg PRN Q15MIN PRN IV/SQ PAIN GREATER THAN 3/10 Last administered on 02/23/19at 11:33; Start 02/23/19 at 11:15; Stop 02/24/19 at 11:14 Methylprednisolone Sodium Succinate (SOLU-Medrol 125MG VIAL) 125 mg 1X ONCE IV Last administered on 02/23/19at 11:25; Start 02/23/19 at 11:15; Stop 02/23/19 at 11:16; Status DC Ondansetron HCl (Zofran) 4 mg PRN Q8HRS PRN IV NAUSEA/VOMITING; Start 02/23/19 at 12:45; Stop 02/24/19 at 12:44 Acetaminophen (Tylenol) 650 mg PRN Q4HRS PRN PO FEVER; Start 02/23/19 at 12:45; Stop 02/24/19 at 12:44 Albuterol/ Ipratropium (Duoneb) 3 ml RTQID NEB Last administered on 02/23/19at 15:34; Start 02/23/19 at 13:00; Stop 02/24/19 at 12:59 Prednisone (Prednisone) 40 mg DAILY PO ; Start 02/24/19 at 09:00; Stop 02/24/19 at 09:00; Status DC Enoxaparin Sodium (Lovenox Per Pharmacy Prophylaxis Dosing) 1 each PRN DAILY PRN MC SEE COMMENTS; Start 02/23/19 at 16:00 Aspirin (Jonathan Aspirin) 325 mg DAILYWBKFT PO ; Start 02/24/19 at 08:00; Stop 02/24/19 at 08:00; Status DC Enoxaparin Sodium (Lovenox 40mg Syringe) 40 mg Q12H SQ Last administered on 02/23/19at 16:48; Start 02/23/19 at 16:00 Hydralazine HCl (Apresoline Inj) 10 mg PRN Q4HRS PRN IVP ELEVATED BP, SEE COMMENTS; Start 02/23/19 at 16:15 Amlodipine Besylate (Norvasc) 10 mg DAILY PO Last administered on 02/23/19at 16:48; Start 02/23/19 at 16:30; Stop 02/23/19 at 16:51; Status DC Amlodipine Besylate (Norvasc) 10 mg 1X ONCE PO ; Start 02/23/19 at 17:00; Stop 02/23/19 at 17:01; Status UNV Lisinopril (Prinivil) 20 mg DAILY PO ; Start 02/23/19 at 17:00 Aspirin (Ecotrin) 81 mg DAILYWBKFT PO ; Start 02/24/19 at 08:00 Chlorthalidone (Thalitone) 25 mg DAILY PO ; Start 02/23/19 at 17:00 Active Scripts Active Flomax (Tamsulosin Hcl) 0.4 Mg Cap.er.24h 1 Cap PO DAILY 30 Days Reported Metformin Hcl 500 Mg Tablet 500 Mg PO BIDWMEALS Amitriptyline Hcl 25 Mg Tablet 1 Tab PO QHS Protonix (Pantoprazole Sodium) 20 Mg Tablet. 2 Tab PO DAILY No Known Medications Prior To Admisstion (Info) Each 1 Each Allergies Allergies: Coded Allergies: Penicillins (Verified Allergy, Intermediate, 05/30/15) ROS Review of System Negative for fever, chills, weight loss, shortness of breath, chest pain, i ndigestion, hematochezia, melena. Positive for prostatism. Full 14-point review of systems is negative. Physical Exam Physical Examination General: Well-developed, well-nourished black male in no acute distress HEENT: Normocephalic andatraumatic. Temporal arteriespulsatile and nontender. Neck: Supple without bruit, no meningismus Musculoskeletal: Stability:see neurologic. Gait exam:see neurologic. Tone:see neurologic.Strength:see neurologic. Neurological: Mental Status:intact, orientation, memory, attention span/concentration, language, fund of knowledge normal. Cranial Nerves:Pupils equal and reactive to light, extraocular movements areintact, visual paula are full to confrontation. Facial sensation is normal. There is no facial asymmetry. Vestibulo-ocular reflex is intact. Palate elevates and tongue protrudes in midline. All other cranial related problems are negative except as mentioned before.Reflexes:1+ and symmetric with flexor plantar responses. Motor:5/5 strength with normal tone and bulk. Coordination:Finger-nose finger and rbvn-wl-ljpk testing are normal. Rapid alternating movements and fine finger movements are intact. Gait:Consistent with left leg pain, also tends to splint the left arm, does not appear neurologically based. Sensory:Normal pinprick, vibration, light touch, proprioception. Vitals VITALS Vital Signs Date Time Temp Pulse Resp B/P (MAP) Pulse Ox O2 Delivery O2 Flow Rate FiO2 02/23/19 16:48 86 152/91 02/23/19 15:40 95 Room Air 02/23/19 14:00 98.2 16 98.2 Labs Labs Laboratory Tests Test 02/23/19 11:03 02/23/19 11:10 02/23/19 13:15 02/23/19 15:01 O2 Saturation 97 % (92-99) Arterial Blood pH 7.45 (7.35-7.45) Arterial Blood pCO2 at Patient Temp 34 mmHg (35-46) Arterial Blood pO2 at Patient Temp 88 mmHg (75-108) Arterial Blood HCO3 23 mmol/L (21-28) Arterial Blood Base Excess 0 mmol/L (-3-3) Oxyhemoglobin 93.1 % Methemoglobin 0.5 % (0.0-1.9) Carbon Monoxide, Quantitative 3.8 % (0.0-1.9) FiO2 21 White Blood Count 8.1 x10^3/uL (4.0-11.0) Red Blood Count 5.61 x10^6/uL (4.30-5.70) Hemoglobin 16.2 g/dL (13.0-17.5) Hematocrit 48.6 % (39.0-53.0) Mean Corpuscular Volume 87 fL (79-100) Mean Corpuscular Hemoglobin 29 pg (25-35) Mean Corpuscular Hemoglobin Concent 33 g/dL (31-37) Red Cell Distribution Width 14.5 % (11.5-14.5) Platelet Count 200 x10^3/uL (140-400) Neutrophils (%) (Auto) 59 % (31-73) Lymphocytes (%) (Auto) 31 % (24-48) Monocytes (%) (Auto) 8 % (0-9) Eosinophils (%) (Auto) 1 % (0-3) Basophils (%) (Auto) 1 % (0-3) Neutrophils # (Auto) 4.8 x10^3uL (1.8-7.7) Lymphocytes # (Auto) 2.5 x10^3/uL (1.0-4.8) Monocytes # (Auto) 0.6 x10^3/uL (0.0-1.1) Eosinophils # (Auto) 0.1 x10^3/uL (0.0-0.7) Basophils # (Auto) 0.1 x10^3/uL (0.0-0.2) Prothrombin Time 12.1 SEC (11.7-14.0) Prothromb Time International Ratio 0.9 (0.8-1.1) D-Dimer (Nasrin) 0.37 ug/mlFEU (0.00-0.50) Sodium Level 139 mmol/L (136-145) Potassium Level 4.4 mmol/L (3.5-5.1) Chloride Level 103 mmol/L (98-107) Carbon Dioxide Level 25 mmol/L (21-32) Anion Gap 11 (6-14) Blood Urea Nitrogen 19 mg/dL (8-26) Creatinine 1.3 mg/dL (0.7-1.3) Estimated GFR (Cockcroft-Gault) 71.3 BUN/Creatinine Ratio 15 (6-20) Glucose Level 108 mg/dL (70-99) Lactic Acid Level 1.4 mmol/L (0.4-2.0) 1.6 mmol/L (0.4-2.0) Calcium Level 9.4 mg/dL (8.5-10.1) Magnesium Level 2.0 mg/dL (1.8-2.4) Total Bilirubin 0.3 mg/dL (0.2-1.0) Aspartate Amino Transf (AST/SGOT) 18 U/L (15-37) Alanine Aminotransferase (ALT/SGPT) 28 U/L (16-63) Alkaline Phosphatase 72 U/L (46-116) Creatine Kinase 232 U/L (39-308) Creatine Kinase MB (Mass) 1.8 ng/mL (0.0-3.6) Creatine Kinase MB Relative Index 0.8 % (0-4) Troponin I Quantitative < 0.017 ng/mL (0.000-0.055) BX-Lew-J-Type Natriuretic Peptide 14 pg/mL (0-124) Total Protein 7.3 g/dL (6.4-8.2) Albumin 3.6 g/dL (3.4-5.0) Albumin/Globulin Ratio 1.0 (1.0-1.7) Thyroid Stimulating Hormone (TSH) 0.654 uIU/mL (0.358-3.74) Urine Opiates Screen Pos (NEG) Urine Methadone Screen Neg (NEG) Urine Barbiturates Neg (NEG) Urine Phencyclidine Screen Neg (NEG) Urine Amphetamine/Methamphetamine Neg (NEG) Urine Benzodiazepines Screen Neg (NEG) Urine Cocaine Screen Pos (NEG) Urine Cannabinoids Screen Neg (NEG) Urine Ethyl Alcohol Neg (NEG) Laboratory Tests Test 02/23/19 11:03 02/23/19 11:10 02/23/19 13:15 02/23/19 15:01 O2 Saturation 97 % (92-99) Arterial Blood pH 7.45 (7.35-7.45) Arterial Blood pCO2 at Patient Temp 34 mmHg (35-46) Arterial Blood pO2 at Patient Temp 88 mmHg (75-108) Arterial Blood HCO3 23 mmol/L (21-28) Arterial Blood Base Excess 0 mmol/L (-3-3) Oxyhemoglobin 93.1 % Methemoglobin 0.5 % (0.0-1.9) Carbon Monoxide, Quantitative 3.8 % (0.0-1.9) FiO2 21 White Blood Count 8.1 x10^3/uL (4.0-11.0) Red Blood Count 5.61 x10^6/uL (4.30-5.70) Hemoglobin 16.2 g/dL (13.0-17.5) Hematocrit 48.6 % (39.0-53.0) Mean Corpuscular Volume 87 fL (79-100) Mean Corpuscular Hemoglobin 29 pg (25-35) Mean Corpuscular Hemoglobin Concent 33 g/dL (31-37) Red Cell Distribution Width 14.5 % (11.5-14.5) Platelet Count 200 x10^3/uL (140-400) Neutrophils (%) (Auto) 59 % (31-73) Lymphocytes (%) (Auto) 31 % (24-48) Monocytes (%) (Auto) 8 % (0-9) Eosinophils (%) (Auto) 1 % (0-3) Basophils (%) (Auto) 1 % (0-3) Neutrophils # (Auto) 4.8 x10^3uL (1.8-7.7) Lymphocytes # (Auto) 2.5 x10^3/uL (1.0-4.8) Monocytes # (Auto) 0.6 x10^3/uL (0.0-1.1) Eosinophils # (Auto) 0.1 x10^3/uL (0.0-0.7) Basophils # (Auto) 0.1 x10^3/uL (0.0-0.2) Prothrombin Time 12.1 SEC (11.7-14.0) Prothromb Time International Ratio 0.9 (0.8-1.1) D-Dimer (Nasrin) 0.37 ug/mlFEU (0.00-0.50) Sodium Level 139 mmol/L (136-145) Potassium Level 4.4 mmol/L (3.5-5.1) Chloride Level 103 mmol/L (98-107) Carbon Dioxide Level 25 mmol/L (21-32) Anion Gap 11 (6-14) Blood Urea Nitrogen 19 mg/dL (8-26) Creatinine 1.3 mg/dL (0.7-1.3) Estimated GFR (Cockcroft-Gault) 71.3 BUN/Creatinine Ratio 15 (6-20) Glucose Level 108 mg/dL (70-99) Lactic Acid Level 1.4 mmol/L (0.4-2.0) 1.6 mmol/L (0.4-2.0) Calcium Level 9.4 mg/dL (8.5-10.1) Magnesium Level 2.0 mg/dL (1.8-2.4) Total Bilirubin 0.3 mg/dL (0.2-1.0) Aspartate Amino Transf (AST/SGOT) 18 U/L (15-37) Alanine Aminotransferase (ALT/SGPT) 28 U/L (16-63) Alkaline Phosphatase 72 U/L (46-116) Creatine Kinase 232 U/L (39-308) Creatine Kinase MB (Mass) 1.8 ng/mL (0.0-3.6) Creatine Kinase MB Relative Index 0.8 % (0-4) Troponin I Quantitative < 0.017 ng/mL (0.000-0.055) SQ-Gga-S-Type Natriuretic Peptide 14 pg/mL (0-124) Total Protein 7.3 g/dL (6.4-8.2) Albumin 3.6 g/dL (3.4-5.0) Albumin/Globulin Ratio 1.0 (1.0-1.7) Thyroid Stimulating Hormone (TSH) 0.654 uIU/mL (0.358-3.74) Urine Opiates Screen Pos (NEG) Urine Methadone Screen Neg (NEG) Urine Barbiturates Neg (NEG) Urine Phencyclidine Screen Neg (NEG) Urine Amphetamine/Methamphetamine Neg (NEG) Urine Benzodiazepines Screen Neg (NEG) Urine Cocaine Screen Pos (NEG) Urine Cannabinoids Screen Neg (NEG) Urine Ethyl Alcohol Neg (NEG) Images Images No neurologic studies done yet Assessment/Plan Assessment/Plan Impression: He had focal neurological symptoms on the right side yesterday and a month ago, left-sided pain, not really truly weak, today. I very much doubt he is having transient ischemic attacks, but certainly hypertensive encephalopathy could cause this problem. Chronic headaches, probably related to hypertension. Consider migraine Possible carbon monoxide poisoning with elevated carbon monoxide on the blood gas, 3.8%, but note he is also a smoker, which is a more likely explanation. Uncontrolled hypertension Recommendation: CT angio instead of carotid Doppler studies MRI brain, can wait till tomorrow. Aspirin Rehab modalities Cardiac workup including echo Control blood pressure Discussed with patient and . Thank you for letting me help with the patient's care. AI KENNEY MD Feb 23, 2019 17:22
[2019-02-23] MEDS: CHLORTHALIDONE 25 MG TABLET. PO SCH (17:50)
[2019-02-23] MEDS: LISINOPRIL 20 MG TABLET PO SCH (17:51)
[2019-02-23] MEDS: oxyCODONE/APAP 5/325 1 TAB TABLET PO PRN (18:33)
[2019-02-23 19:30] VITALS: BP 134/79
[2019-02-23] MEDS ORDERED: NICOTINE 7MG PATCH. TD PRN (20:15)
[2019-02-23] MEDS ORDERED: FLUO20CA8 PO (20:19)
[2019-02-23] MEDS ORDERED: SIMVASTATIN 10 MG TABLET PO SCH (21:00)
[2019-02-23] MEDS ORDERED: IOHEXOL 350 MG/ML 100 ML VIAL. IV ONE (22:00)
[2019-02-23] MEDS ORDERED: CONTRAST GIVEN. MC PRN (22:15)
--- NOTE | 2019-02-23 22:15 | RAD ---
EXAM: CT angiogram of the head and neck with intravenous contrast. HISTORY: Mental status changes. TECHNIQUE: Computed tomographic images the head and neck were obtained following the administration of 100 cc Omnipaque 300 intravenous contrast. Three-dimensional maximum intensity projection images were obtained. *One or more of the following individualized dose reduction techniques were utilized for this examination: 1. Automated exposure control. 2. Adjustment of the mA and/or kV according to patient size. 3. Use of iterative reconstruction technique. COMPARISON: Head CT dated 05/30/2015. FINDINGS: There is a standard aortic arch branching pattern. The visualized portion of the aorta is normal in caliber. There is no dissection. The origins and proximal aspects of the arch great vessels are widely patent. There is no pneumothorax or infiltrate within the visualized portions of the lungs. There is a 4 mm suspected cyst or hypodense nodule within the left thyroid lobe. There is an 8 mm heterogeneous region within the right thyroid lobe, without a discrete nodule. There is minimal partially calcified plaque within the left carotid bulb. The carotid bifurcations are widely patent. The left vertebral artery is slightly dominant. No vertebral artery occlusion, stenosis or dissection is seen. The distal right vertebral artery is hypoplastic, a normal variant. There is a suspected left posterior cerebral artery or prominent left posterior to communicate a artery with tiny P1 segment. The right posterior to communicating artery is patent. The anterior communicating artery is patent. No hemodynamically significant stenosis is seen. There is no aneurysm. There is no suspicious enhancing lesion. There is no mass effect or midline shift. There is no hydrocephalus. The orbits, paranasal sinuses mastoid air cells are unremarkable. No suspicious osseous lesion is seen. IMPRESSION: 1. No evidence of hemodynamically significant stenosis or aneurysm involving the neck or intracranial arteries. There are normal vertebral and cerebral vascular anatomic variants, described above. 2. No acute intracranial finding. Note is made that MRI is more sensitive for acute infarction. PQRS Compliance Statement - Stenosis calculations for CT, MR and conventional angiography are based upon measurement of the distal ICA diameter in accordance with the NASCET methodology. Stenosis calculations for carotid ultrasound studies are derived from validated velocity criteria which are known to correlate with the NASCET methodology. Electronically signed by: Leslie Vital MD (02/23/2019 10:12 PM) [facility]
[2019-02-23] MEDS ORDERED: HYDR-2145 PO (22:18)
[2019-02-23 23:21] VITALS: BP 128/71
[2019-02-24 03:22] VITALS: BP 114/56
[2019-02-24 04:39] LABS: BASO % 0 % (0-3); EOS % 0 % (0-3); HEMATOCRIT 48.8 % (39.0-53.0); HEMOGLOBIN 15.9 g/dL (13.0-17.5); LYMPH # 1.4 x10^3/uL (1.0-4.8); LYMPH % 11 % (24-48); MEAN CORPUSCULAR HEMOGLOBIN 29 pg (25-35); MEAN CORPUSCULAR HGB CONC 33 g/dL (31-37); MEAN CORPUSCULAR VOLUME 88 fL (79-100); MONO # 0.6 x10^3/uL (0.0-1.1); MONO % 5 % (0-9); NEUT # 10.6 x10^3uL (1.8-7.7); NEUT % 84 % (31-73); PLATELET COUNT 199 x10^3/uL (140-400); RED BLOOD COUNT 5.55 x10^6/uL (4.30-5.70); RED CELL DISTRIBUTION WIDTH 14.5 % (11.5-14.5); WHITE BLOOD COUNT 12.6 x10^3/uL (4.0-11.0)
[2019-02-24 05:05] LABS: CALCIUM 9.2 mg/dL (8.5-10.1); CREATININE 1.3 mg/dL (0.7-1.3); GFR 71.3; POTASSIUM 4.6 mmol/L (3.5-5.1)
[2019-02-24 05:12] LABS: CHOLESTEROL/HDL RATIO 5.1
[2019-02-24 06:19] LABS: HEMOGLOBIN A1C 6.2 % (4.8-5.6)
[2019-02-24 07:00] VITALS: BP 125/66
[2019-02-24] MEDS: IPRATRPIUM/ALBUTEROL 0.5/2.5MG 3 ML NEBU. NEB SCH ×5 (07:09→20:36)
[2019-02-24] MEDS ORDERED: ASPIRIN 325 MG TABLET PO SCH (08:00)
[2019-02-24] MEDS ORDERED: ASPIRIN ENTERIC COATED 81 MG TABLET.DR. PO SCH (08:00)
--- NOTE | 2019-02-24 08:57 | PDOC ---
PROGRESS NOTES Assessment Problems Medical Problems: (1) Hypertension Status: Acute (2) Shortness of breath Status: Acute (3) Smoking addiction Status: Acute He had focal neurological symptoms on the right side / and a month ago, left- sided pain /, not really truly weak. Today, he emphasizes that it's more of a problem with left shoulder pain, and he has chronic left knee pain for which he has had injections. Hypertensive encephalopathy could cause this problem. Chronic headaches, probably related to hypertension. Consider migraine Possible carbon monoxide poisoning with elevated carbon monoxide on the blood gas, 3.8%, but note he is also a smoker, which is a more likely explanation. Uncontrolled hypertension Plan Await MRI brain Aspirin Rehab modalities Cardiac workup including echo Control blood pressure Plain films of left shoulder and knee Requires Valium sedation for MRI Subjective still weak and painful, left arm and leg, pain in left shoulder, left knee Objective Vital Signs Date Time Temp Pulse Resp B/P (MAP) Pulse Ox O2 Delivery O2 Flow Rate FiO2 02/24/19 07:10 95 Room Air 02/24/19 07:00 98.0 68 20 125/66 (85) 98.0 Intake and Output 02/24/19 06:59 Intake Total 920 ml Output Total 400 ml Balance 520 ml Intake Oral 920 ml Output Urine Total 400 ml # Voids 3 PHYSICAL EXAM Alert. Oriented to time, place and person. PERRL. EOMI. CN: no focal findings. Muscle tone: normal. Muscle strength: give-way weakness left arm, no drift, also give-way in leg DTR: 1+ Plantar reflex: flexor Gait: not examined in bed. Sensory exam: no abnormal findings. No cerebellar signs elicited. Review of Relevant I have reviewed the following items alison (where applicable) has been applied. Labs Laboratory Tests Test 02/23/19 11:03 02/23/19 11:10 02/23/19 13:15 02/23/19 15:01 O2 Saturation 97 % (92-99) Arterial Blood pH 7.45 (7.35-7.45) Arterial Blood pCO2 at Patient Temp 34 mmHg (35-46) Arterial Blood pO2 at Patient Temp 88 mmHg (75-108) Arterial Blood HCO3 23 mmol/L (21-28) Arterial Blood Base Excess 0 mmol/L (-3-3) Oxyhemoglobin 93.1 % Methemoglobin 0.5 % (0.0-1.9) Carbon Monoxide, Quantitative 3.8 % (0.0-1.9) FiO2 21 White Blood Count 8.1 x10^3/uL (4.0-11.0) Red Blood Count 5.61 x10^6/uL (4.30-5.70) Hemoglobin 16.2 g/dL (13.0-17.5) Hematocrit 48.6 % (39.0-53.0) Mean Corpuscular Volume 87 fL (79-100) Mean Corpuscular Hemoglobin 29 pg (25-35) Mean Corpuscular Hemoglobin Concent 33 g/dL (31-37) Red Cell Distribution Width 14.5 % (11.5-14.5) Platelet Count 200 x10^3/uL (140-400) Neutrophils (%) (Auto) 59 % (31-73) Lymphocytes (%) (Auto) 31 % (24-48) Monocytes (%) (Auto) 8 % (0-9) Eosinophils (%) (Auto) 1 % (0-3) Basophils (%) (Auto) 1 % (0-3) Neutrophils # (Auto) 4.8 x10^3uL (1.8-7.7) Lymphocytes # (Auto) 2.5 x10^3/uL (1.0-4.8) Monocytes # (Auto) 0.6 x10^3/uL (0.0-1.1) Eosinophils # (Auto) 0.1 x10^3/uL (0.0-0.7) Basophils # (Auto) 0.1 x10^3/uL (0.0-0.2) Prothrombin Time 12.1 SEC (11.7-14.0) Prothromb Time International Ratio 0.9 (0.8-1.1) D-Dimer (Nasrin) 0.37 ug/mlFEU (0.00-0.50) Sodium Level 139 mmol/L (136-145) Potassium Level 4.4 mmol/L (3.5-5.1) Chloride Level 103 mmol/L (98-107) Carbon Dioxide Level 25 mmol/L (21-32) Anion Gap 11 (6-14) Blood Urea Nitrogen 19 mg/dL (8-26) Creatinine 1.3 mg/dL (0.7-1.3) Estimated GFR (Cockcroft-Gault) 71.3 BUN/Creatinine Ratio 15 (6-20) Glucose Level 108 mg/dL (70-99) Hemoglobin A1c 6.2 % (4.8-5.6) Lactic Acid Level 1.4 mmol/L (0.4-2.0) 1.6 mmol/L (0.4-2.0) Calcium Level 9.4 mg/dL (8.5-10.1) Magnesium Level 2.0 mg/dL (1.8-2.4) Total Bilirubin 0.3 mg/dL (0.2-1.0) Aspartate Amino Transf (AST/SGOT) 18 U/L (15-37) Alanine Aminotransferase (ALT/SGPT) 28 U/L (16-63) Alkaline Phosphatase 72 U/L (46-116) Creatine Kinase 232 U/L (39-308) Creatine Kinase MB (Mass) 1.8 ng/mL (0.0-3.6) Creatine Kinase MB Relative Index 0.8 % (0-4) Troponin I Quantitative < 0.017 ng/mL (0.000-0.055) LY-Wvo-I-Type Natriuretic Peptide 14 pg/mL (0-124) Total Protein 7.3 g/dL (6.4-8.2) Albumin 3.6 g/dL (3.4-5.0) Albumin/Globulin Ratio 1.0 (1.0-1.7) Thyroid Stimulating Hormone (TSH) 0.654 uIU/mL (0.358-3.74) Urine Opiates Screen Pos (NEG) Urine Methadone Screen Neg (NEG) Urine Barbiturates Neg (NEG) Urine Phencyclidine Screen Neg (NEG) Urine Amphetamine/Methamphetamine Neg (NEG) Urine Benzodiazepines Screen Neg (NEG) Urine Cocaine Screen Pos (NEG) Urine Cannabinoids Screen Neg (NEG) Urine Ethyl Alcohol Neg (NEG) Test 02/23/19 17:15 02/23/19 20:42 02/24/19 04:00 02/24/19 07:26 Troponin I Quantitative < 0.017 ng/mL (0.000-0.055) Glucose (Fingerstick) 158 mg/dL (70-99) 126 mg/dL (70-99) White Blood Count 12.6 x10^3/uL (4.0-11.0) Red Blood Count 5.55 x10^6/uL (4.30-5.70) Hemoglobin 15.9 g/dL (13.0-17.5) Hematocrit 48.8 % (39.0-53.0) Mean Corpuscular Volume 88 fL (79-100) Mean Corpuscular Hemoglobin 29 pg (25-35) Mean Corpuscular Hemoglobin Concent 33 g/dL (31-37) Red Cell Distribution Width 14.5 % (11.5-14.5) Platelet Count 199 x10^3/uL (140-400) Neutrophils (%) (Auto) 84 % (31-73) Lymphocytes (%) (Auto) 11 % (24-48) Monocytes (%) (Auto) 5 % (0-9) Eosinophils (%) (Auto) 0 % (0-3) Basophils (%) (Auto) 0 % (0-3) Neutrophils # (Auto) 10.6 x10^3uL (1.8-7.7) Lymphocytes # (Auto) 1.4 x10^3/uL (1.0-4.8) Monocytes # (Auto) 0.6 x10^3/uL (0.0-1.1) Eosinophils # (Auto) 0.0 x10^3/uL (0.0-0.7) Basophils # (Auto) 0.0 x10^3/uL (0.0-0.2) Sodium Level 136 mmol/L (136-145) Potassium Level 4.6 mmol/L (3.5-5.1) Chloride Level 101 mmol/L (98-107) Carbon Dioxide Level 25 mmol/L (21-32) Anion Gap 10 (6-14) Blood Urea Nitrogen 19 mg/dL (8-26) Creatinine 1.3 mg/dL (0.7-1.3) Estimated GFR (Cockcroft-Gault) 71.3 Glucose Level 144 mg/dL (70-99) Calcium Level 9.2 mg/dL (8.5-10.1) Triglycerides Level 87 mg/dL (0-150) Cholesterol Level 203 mg/dL (0-200) LDL Cholesterol, Calculated 146 mg/dL (0-100) VLDL Cholesterol, Calculated 17 mg/dL (0-40) Non-HDL Cholesterol Calculated 163 mg/dL (0-129) HDL Cholesterol 40 mg/dL (40-60) Cholesterol/HDL Ratio 5.1 Laboratory Tests Test 02/23/19 11:03 02/23/19 11:10 02/23/19 13:15 02/23/19 15:01 O2 Saturation 97 % (92-99) Arterial Blood pH 7.45 (7.35-7.45) Arterial Blood pCO2 at Patient Temp 34 mmHg (35-46) Arterial Blood pO2 at Patient Temp 88 mmHg (75-108) Arterial Blood HCO3 23 mmol/L (21-28) Arterial Blood Base Excess 0 mmol/L (-3-3) Oxyhemoglobin 93.1 % Methemoglobin 0.5 % (0.0-1.9) Carbon Monoxide, Quantitative 3.8 % (0.0-1.9) FiO2 21 White Blood Count 8.1 x10^3/uL (4.0-11.0) Red Blood Count 5.61 x10^6/uL (4.30-5.70) Hemoglobin 16.2 g/dL (13.0-17.5) Hematocrit 48.6 % (39.0-53.0) Mean Corpuscular Volume 87 fL (79-100) Mean Corpuscular Hemoglobin 29 pg (25-35) Mean Corpuscular Hemoglobin Concent 33 g/dL (31-37) Red Cell Distribution Width 14.5 % (11.5-14.5) Platelet Count 200 x10^3/uL (140-400) Neutrophils (%) (Auto) 59 % (31-73) Lymphocytes (%) (Auto) 31 % (24-48) Monocytes (%) (Auto) 8 % (0-9) Eosinophils (%) (Auto) 1 % (0-3) Basophils (%) (Auto) 1 % (0-3) Neutrophils # (Auto) 4.8 x10^3uL (1.8-7.7) Lymphocytes # (Auto) 2.5 x10^3/uL (1.0-4.8) Monocytes # (Auto) 0.6 x10^3/uL (0.0-1.1) Eosinophils # (Auto) 0.1 x10^3/uL (0.0-0.7) Basophils # (Auto) 0.1 x10^3/uL (0.0-0.2) Prothrombin Time 12.1 SEC (11.7-14.0) Prothromb Time International Ratio 0.9 (0.8-1.1) D-Dimer (Nasrin) 0.37 ug/mlFEU (0.00-0.50) Sodium Level 139 mmol/L (136-145) Potassium Level 4.4 mmol/L (3.5-5.1) Chloride Level 103 mmol/L (98-107) Carbon Dioxide Level 25 mmol/L (21-32) Anion Gap 11 (6-14) Blood Urea Nitrogen 19 mg/dL (8-26) Creatinine 1.3 mg/dL (0.7-1.3) Estimated GFR (Cockcroft-Gault) 71.3 BUN/Creatinine Ratio 15 (6-20) Glucose Level 108 mg/dL (70-99) Hemoglobin A1c 6.2 % (4.8-5.6) Lactic Acid Level 1.4 mmol/L (0.4-2.0) 1.6 mmol/L (0.4-2.0) Calcium Level 9.4 mg/dL (8.5-10.1) Magnesium Level 2.0 mg/dL (1.8-2.4) Total Bilirubin 0.3 mg/dL (0.2-1.0) Aspartate Amino Transf (AST/SGOT) 18 U/L (15-37) Alanine Aminotransferase (ALT/SGPT) 28 U/L (16-63) Alkaline Phosphatase 72 U/L (46-116) Creatine Kinase 232 U/L (39-308) Creatine Kinase MB (Mass) 1.8 ng/mL (0.0-3.6) Creatine Kinase MB Relative Index 0.8 % (0-4) Troponin I Quantitative < 0.017 ng/mL (0.000-0.055) XU-Cap-K-Type Natriuretic Peptide 14 pg/mL (0-124) Total Protein 7.3 g/dL (6.4-8.2) Albumin 3.6 g/dL (3.4-5.0) Albumin/Globulin Ratio 1.0 (1.0-1.7) Thyroid Stimulating Hormone (TSH) 0.654 uIU/mL (0.358-3.74) Urine Opiates Screen Pos (NEG) Urine Methadone Screen Neg (NEG) Urine Barbiturates Neg (NEG) Urine Phencyclidine Screen Neg (NEG) Urine Amphetamine/Methamphetamine Neg (NEG) Urine Benzodiazepines Screen Neg (NEG) Urine Cocaine Screen Pos (NEG) Urine Cannabinoids Screen Neg (NEG) Urine Ethyl Alcohol Neg (NEG) Test 02/23/19 17:15 02/23/19 20:42 02/24/19 04:00 02/24/19 07:26 Troponin I Quantitative < 0.017 ng/mL (0.000-0.055) Glucose (Fingerstick) 158 mg/dL (70-99) 126 mg/dL (70-99) White Blood Count 12.6 x10^3/uL (4.0-11.0) Red Blood Count 5.55 x10^6/uL (4.30-5.70) Hemoglobin 15.9 g/dL (13.0-17.5) Hematocrit 48.8 % (39.0-53.0) Mean Corpuscular Volume 88 fL (79-100) Mean Corpuscular Hemoglobin 29 pg (25-35) Mean Corpuscular Hemoglobin Concent 33 g/dL (31-37) Red Cell Distribution Width 14.5 % (11.5-14.5) Platelet Count 199 x10^3/uL (140-400) Neutrophils (%) (Auto) 84 % (31-73) Lymphocytes (%) (Auto) 11 % (24-48) Monocytes (%) (Auto) 5 % (0-9) Eosinophils (%) (Auto) 0 % (0-3) Basophils (%) (Auto) 0 % (0-3) Neutrophils # (Auto) 10.6 x10^3uL (1.8-7.7) Lymphocytes # (Auto) 1.4 x10^3/uL (1.0-4.8) Monocytes # (Auto) 0.6 x10^3/uL (0.0-1.1) Eosinophils # (Auto) 0.0 x10^3/uL (0.0-0.7) Basophils # (Auto) 0.0 x10^3/uL (0.0-0.2) Sodium Level 136 mmol/L (136-145) Potassium Level 4.6 mmol/L (3.5-5.1) Chloride Level 101 mmol/L (98-107) Carbon Dioxide Level 25 mmol/L (21-32) Anion Gap 10 (6-14) Blood Urea Nitrogen 19 mg/dL (8-26) Creatinine 1.3 mg/dL (0.7-1.3) Estimated GFR (Cockcroft-Gault) 71.3 Glucose Level 144 mg/dL (70-99) Calcium Level 9.2 mg/dL (8.5-10.1) Triglycerides Level 87 mg/dL (0-150) Cholesterol Level 203 mg/dL (0-200) LDL Cholesterol, Calculated 146 mg/dL (0-100) VLDL Cholesterol, Calculated 17 mg/dL (0-40) Non-HDL Cholesterol Calculated 163 mg/dL (0-129) HDL Cholesterol 40 mg/dL (40-60) Cholesterol/HDL Ratio 5.1 Medications Current Medications Albuterol/ Ipratropium (Duoneb) 3 ml 1X ONCE NEB Last administered on 02/23/19at 11:19; Start 02/23/19 at 11:15; Stop 02/23/19 at 11:16; Status DC Aspirin (Opsens Aspirin) 325 mg 1X ONCE PO Last administered on 02/23/19at 11:25; Start 02/23/19 at 11:15; Stop 02/23/19 at 11:16; Status DC Morphine Sulfate (Morphine Sulfate) 4 mg PRN Q15MIN PRN IV/SQ PAIN GREATER THAN 3/10 Last administered on 02/23/19at 11:33; Start 02/23/19 at 11:15; Stop 02/24/19 at 11:14 Methylprednisolone Sodium Succinate (SOLU-Medrol 125MG VIAL) 125 mg 1X ONCE IV Last administered on 02/23/19at 11:25; Start 02/23/19 at 11:15; Stop 02/23/19 at 11:16; Status DC Ondansetron HCl (Zofran) 4 mg PRN Q8HRS PRN IV NAUSEA/VOMITING; Start 02/23/19 at 12:45; Stop 02/24/19 at 12:44 Acetaminophen (Tylenol) 650 mg PRN Q4HRS PRN PO FEVER; Start 02/23/19 at 12:45; Stop 02/24/19 at 12:44 Albuterol/ Ipratropium (Duoneb) 3 ml RTQID NEB Last administered on 02/24/19at 07:09; Start 02/23/19 at 13:00; Stop 02/24/19 at 12:59 Prednisone (Prednisone) 40 mg DAILY PO ; Start 02/24/19 at 09:00; Stop 02/24/19 at 09:00; Status DC Enoxaparin Sodium (Lovenox Per Pharmacy Prophylaxis Dosing) 1 each PRN DAILY PRN MC SEE COMMENTS; Start 02/23/19 at 16:00 Aspirin (Jonathan Aspirin) 325 mg DAILYWBKFT PO ; Start 02/24/19 at 08:00; Stop 02/24/19 at 08:00; Status DC Enoxaparin Sodium (Lovenox 40mg Syringe) 40 mg Q12H SQ Last administered on 02/23/19at 16:48; Start 02/23/19 at 16:00; Stop 02/24/19 at 00:39; Status DC Hydralazine HCl (Apresoline Inj) 10 mg PRN Q4HRS PRN IVP ELEVATED BP, SEE COMMENTS; Start 02/23/19 at 16:15 Amlodipine Besylate (Norvasc) 10 mg DAILY PO Last administered on 02/23/19at 16:48; Start 02/23/19 at 16:30; Stop 02/23/19 at 16:51; Status DC Amlodipine Besylate (Norvasc) 10 mg 1X ONCE PO ; Start 02/23/19 at 17:00; Stop 02/23/19 at 17:01; Status UNV Lisinopril (Prinivil) 20 mg DAILY PO Last administered on 02/23/19at 17:51; Start 02/23/19 at 17:00 Aspirin (Ecotrin) 81 mg DAILYWBKFT PO ; Start 02/24/19 at 08:00; Stop 02/24/19 at 08:00; Status DC Chlorthalidone (Thalitone) 25 mg DAILY PO Last administered on 02/23/19at 17:50; Start 02/23/19 at 17:00 Simvastatin (Zocor) 10 mg QHS PO ; Start 02/23/19 at 21:00 Acetaminophen (Tylenol) 650 mg PRN Q6HRS PRN PO TEMP > 100.4F; Start 02/23/19 at 17:15 Acetaminophen (Tylenol Supp) 650 mg PRN Q4HRS PRN [place] TEMP > 100.4F; Start 02/23/19 at 17:15 Aspirin (Ecotrin) 325 mg DAILYWBKFT PO ; Start 02/24/19 at 08:00 Aspirin (Aspirin Rectal Supp) 300 mg PRN DAILY PRN [place] IF UNABLE TO TAKE PO; Start 02/23/19 at 17:15 Oxycodone/ Acetaminophen (Percocet 5/325) 1 tab PRN Q6HRS PRN PO PAIN Last administered on 02/23/19at 18:33; Start 02/23/19 at 18:00 Nicotine (Nicoderm Cq 7mg) 1 patch PRN DAILY PRN TD SMOKING CESSATION; Start 02/23/19 at 20:15 Iohexol (Omnipaque 350 Mg/ml) 100 ml 1X ONCE IV Last administered on 02/23/19at 22:01; Start 02/23/19 at 22:00; Stop 02/23/19 at 22:03; Status DC Info (CONTRAST GIVEN -- Rx MONITORING) 1 each PRN DAILY PRN MC SEE COMMENTS; Start 02/23/19 at 22:15; Stop 02/25/19 at 22:14 Enoxaparin Sodium (Lovenox 40mg Syringe) 40 mg Q12HR SQ ; Start 02/24/19 at 09:00 Active Scripts Active Flomax (Tamsulosin Hcl) 0.4 Mg Cap.er.24h 1 Cap PO DAILY 30 Days Reported Hydrochlorothiazide Tablet (Hydrochlorothiazide) 25 Mg Tablet 25 Mg PO DAILY Fluoxetine Hcl 20 Mg Capsule 1 Cap PO DAILY Metformin Hcl 500 Mg Tablet 500 Mg PO BIDWMEALS Amitriptyline Hcl 25 Mg Tablet 1 Tab PO QHS Protonix (Pantoprazole Sodium) 20 Mg Tablet.dr 2 Tab PO DAILY No Known Medications Prior To Admisstion (Info) Each 1 Each Vitals/I & O Vital Sign - Last 24 Hours 02/23/19 02/23/19 02/23/19 02/23/19 10:51 11:20 11:26 11:33 Temp 98.3 98.3 Pulse 97 86 Resp 20 20 20 B/P (MAP) 182/100 (127) 144/81 (102) Pulse Ox 96 96 99 98 O2 Delivery Room Air Room Air Room Air Room Air 02/23/19 02/23/19 02/23/19 02/23/19 11:56 12:03 12:26 12:56 Pulse 106 92 88 Resp 27 19 B/P (MAP) 176/83 (114) 161/91 (114) 155/92 (113) Pulse Ox 95 95 94 94 O2 Delivery Room Air Room Air Room Air Room Air 02/23/19 02/23/19 02/23/19 02/23/19 13:26 13:44 14:00 15:40 Temp 98.2 98.2 Pulse 86 90 82 Resp 15 23 16 B/P (MAP) 161/88 (112) 178/98 (124) 162/102 (122) Pulse Ox 96 98 95 95 O2 Delivery Room Air Room Air Room Air Room Air 02/23/19 02/23/19 02/23/19 02/23/19 16:48 17:51 18:33 19:30 Temp 98.2 98.2 Pulse 86 85 97 Resp 18 18 B/P (MAP) 152/91 140/70 134/79 (97) Pulse Ox 95 95 O2 Delivery Room Air Room Air 02/23/19 02/23/19 02/23/19 02/24/19 19:45 20:16 23:21 03:22 Temp 97.6 97.4 97.6 97.4 Pulse 77 58 Resp 20 20 B/P (MAP) 128/71 (90) 114/56 (75) Pulse Ox 97 98 O2 Delivery Room Air Room Air Room Air Room Air 02/24/19 02/24/19 07:00 07:10 Temp 98.0 98.0 Pulse 68 Resp 20 B/P (MAP) 125/66 (85) Pulse Ox 97 95 O2 Delivery Room Air Room Air Intake and Output 02/23/19 02/23/19 02/24/19 14:59 22:59 06:59 Intake Total 520 ml 400 ml Output Total 400 ml Balance 520 ml [address] angiogram of the head and neck with intravenous contrast. HISTORY: Mental status changes. TECHNIQUE: Computed tomographic images the head and neck were obtained following the administration of 100 cc Omnipaque 300 intravenous contrast. Three-dimensional maximum intensity projection images were obtained. *One or more of the following individualized dose reduction techniques were utilized for this examination: 1. Automated exposure control. 2. Adjustment of the mA and/or kV according to patient size. 3. Use of iterative reconstruction technique. COMPARISON: Head CT dated 05/30/2015. FINDINGS: There is a standard aortic arch branching pattern. The visualized portion of the aorta is normal in caliber. There is no dissection. The origins and proximal aspects of the arch great vessels are widely patent. There is no pneumothorax or infiltrate within the visualized portions of the lungs. There is a 4 mm suspected cyst or hypodense nodule within the left thyroid lobe. There is an 8 mm heterogeneous region within the right thyroid lobe, without a discrete nodule. There is minimal partially calcified plaque within the left carotid bulb. The carotid bifurcations are widely patent. The left vertebral artery is slightly dominant. No vertebral artery occlusion, stenosis or dissection is seen. The distal right vertebral artery is hypoplastic, a normal variant. There is a suspected left posterior cerebral artery or prominent left posterior to communicate a artery with tiny P1 segment. The right posterior to communicating artery is patent. The anterior communicating artery is patent. No hemodynamically significant stenosis is seen. There is no aneurysm. There is no suspicious enhancing lesion. There is no mass effect or midline shift. There is no hydrocephalus. The orbits, paranasal sinuses mastoid air cells are unremarkable. No suspicious osseous lesion is seen. IMPRESSION: 1. No evidence of hemodynamically significant stenosis or aneurysm involving the neck or intracranial arteries. There are normal vertebral and cerebral vascular anatomic variants, described above. 2. No acute intracranial finding. Note is made that MRI is more sensitive for acute infarction. AI KENNEY MD Feb 24, 2019 08:57
[2019-02-24] MEDS ORDERED: predniSONE 20 MG TABLET PO SCH (09:00)
[2019-02-24] MEDS ORDERED: diazePAM 5 MG TABLET PO PRN (09:00)
[2019-02-24] MEDS: oxyCODONE/APAP 5/325 1 TAB TABLET PO PRN ×2 (09:02→21:57)
[2019-02-24] MEDS: LISINOPRIL 20 MG TABLET PO SCH (09:02)
[2019-02-24] MEDS: ASPIRIN ENTERIC COATED 325 MG TABLET.DR. PO SCH (09:02)
[2019-02-24] MEDS: CHLORTHALIDONE 25 MG TABLET. PO SCH (09:03)
[2019-02-24] MEDS: ENOXAPARIN 40 MG/0.4 ML SYRINGE. SQ SCH ×2 (09:03→21:58)
--- NOTE | 2019-02-24 10:39 | CARD ---
MR#: [id number] Date of Study: 02/24/2019 Ordering Physician: EVELIO WOODWARD, Referring Physician: EVELIO WOODWARD, Tech: Elsa Fernandez JOCELYNE APPROVED REPORT EXAM: Two-dimensional and M-mode echocardiogram with Doppler and color Doppler. Other Information Quality : Technically LimitedHR: 70bpm Rhythm : NSRTechnically limited study due to body habitus. INDICATION Shortness of breath 2D DIMENSIONS RVDd2.7 (2.9-3.5cm)Left Atrium(2D)2.8 (1.6-4.0cm) IVSd0.7 (0.7-1.1cm)Aortic Root(2D)2.5 (2.0-3.7cm) LVDd4.9 (3.9-5.9cm)LVOT Diameter2.1 (1.8-2.4cm) PWd0.8 (0.7-1.1cm)LVDs2.8 (2.5-4.0cm) FS (%) 44.2 %SV86.7 ml LVEF(%)75.2 (>50%) M-Mode DIMENSIONS Left Atrium(MM)3.37 (2.5-4.0cm)Aortic Root2.95 (2.2-3.7cm) Aortic Valve AoV Peak Javier.164.6cm/sAoV VTI31.2cm AO Peak GR.10.8mmHgLVOT Peak Javier.144.0cm/s AO Mean GR.7mmHgAVA (VMAX)3.11cm2 RIGOBERTO (VTI)3.00cm2 Mitral Valve MV E Shdkskcg22.7cm/sMV DECEL [id number] MV A Ytasugzy00.9cm/sE/A Ratio1.1 Pulmonary Valve PV Peak Cnanrhfk261.1cm/s LEFT VENTRICLE The left ventricle is normal size. There is normal left ventricular wall thickness. The left ventricu lar systolic function is normal. The Ejection Fraction is 65-70%. There is normal LV segmental wall m otion. The left ventricular diastolic function and filling is normal for age. RIGHT VENTRICLE The right ventricle is normal size. There is normal right ventricular wall thickness. The right ventr icular systolic function is normal. ATRIA The left atrium size is normal. The right atrium size is normal. The interatrial septum is intact wit h no evidence for an atrial septal defect or patent foramen ovale as noted on 2-D or Doppler imaging. AORTIC VALVE The aortic valve is normal in structure and function. The aortic valve is trileaflet. Doppler and Col or Flow revealed no significant aortic regurgitation. There is no significant aortic valvular stenosi s. MITRAL VALVE The mitral valve is normal in structure and function. There is no evidence of mitral valve prolapse. There is no mitral valve stenosis. Doppler and Color-flow revealed trace mitral regurgitation. TRICUSPID VALVE The tricuspid valve is normal in structure and function. Doppler and Color Flow revealed no tricuspid valve regurgitation noted. There is no tricuspid valve prolapse or vegetation. There is no tricuspid valve stenosis. PULMONIC VALVE The pulmonic valve is not well visualized. GREAT VESSELS The aortic root is normal in size. The ascending aorta is normal in size. The IVC is normal in size a nd collapses >50% with inspiration. PERICARDIAL EFFUSION There is no evidence of significant pericardial effusion. Critical Notification Critical Value: No <Conclusion> The left ventricular systolic function is normal. The Ejection Fraction is 65-70%. There is normal LV segmental wall motion. Trace mitral regurgitation. There is no evidence of significant pericardial effusion. Signed by : Burke Mckenzie, Electronically Approved : 02/24/2019 10:38:37
[2019-02-24 11:00] VITALS: BP 129/61
--- NOTE | 2019-02-24 12:29 | PDOC ---
CARDIO Progress Notes Date and Time Date of Service 02/24/2019 Time of Evaluation 1210 Subjective Subjective: No Chest Pain, No shortness of breath, No Palpitations, Other (still has intermittent shoulder tenderness) Vitals Vitals Vital Signs Date Time Temp Pulse Resp B/P (MAP) Pulse Ox O2 Delivery O2 Flow Rate FiO2 02/24/19 11:22 Room Air 02/24/19 11:00 98.3 66 20 129/61 (83) 97 98.3 Weight Weight [ ] Input and Output Intake and Output Intake and Output 02/24/19 07:00 Intake Total 920 ml Output Total 400 ml Balance 520 ml Intake Oral 920 ml Output Urine Total 400 ml # Voids 3 Laboratory Labs Laboratory Tests Test 02/23/19 13:15 02/23/19 15:01 02/23/19 17:15 02/23/19 20:42 Urine Opiates Screen Pos (NEG) Urine Methadone Screen Neg (NEG) Urine Barbiturates Neg (NEG) Urine Phencyclidine Screen Neg (NEG) Urine Amphetamine/Methamphetamine Neg (NEG) Urine Benzodiazepines Screen Neg (NEG) Urine Cocaine Screen Pos (NEG) Urine Cannabinoids Screen Neg (NEG) Urine Ethyl Alcohol Neg (NEG) Lactic Acid Level 1.6 mmol/L (0.4-2.0) Troponin I Quantitative < 0.017 ng/mL (0.000-0.055) Glucose (Fingerstick) 158 mg/dL (70-99) Test 02/24/19 04:00 02/24/19 07:26 White Blood Count 12.6 x10^3/uL (4.0-11.0) Red Blood Count 5.55 x10^6/uL (4.30-5.70) Hemoglobin 15.9 g/dL (13.0-17.5) Hematocrit 48.8 % (39.0-53.0) Mean Corpuscular Volume 88 fL (79-100) Mean Corpuscular Hemoglobin 29 pg (25-35) Mean Corpuscular Hemoglobin Concent 33 g/dL (31-37) Red Cell Distribution Width 14.5 % (11.5-14.5) Platelet Count 199 x10^3/uL (140-400) Neutrophils (%) (Auto) 84 % (31-73) Lymphocytes (%) (Auto) 11 % (24-48) Monocytes (%) (Auto) 5 % (0-9) Eosinophils (%) (Auto) 0 % (0-3) Basophils (%) (Auto) 0 % (0-3) Neutrophils # (Auto) 10.6 x10^3uL (1.8-7.7) Lymphocytes # (Auto) 1.4 x10^3/uL (1.0-4.8) Monocytes # (Auto) 0.6 x10^3/uL (0.0-1.1) Eosinophils # (Auto) 0.0 x10^3/uL (0.0-0.7) Basophils # (Auto) 0.0 x10^3/uL (0.0-0.2) Sodium Level 136 mmol/L (136-145) Potassium Level 4.6 mmol/L (3.5-5.1) Chloride Level 101 mmol/L (98-107) Carbon Dioxide Level 25 mmol/L (21-32) Anion Gap 10 (6-14) Blood Urea Nitrogen 19 mg/dL (8-26) Creatinine 1.3 mg/dL (0.7-1.3) Estimated GFR (Cockcroft-Gault) 71.3 Glucose Level 144 mg/dL (70-99) Calcium Level 9.2 mg/dL (8.5-10.1) Triglycerides Level 87 mg/dL (0-150) Cholesterol Level 203 mg/dL (0-200) LDL Cholesterol, Calculated 146 mg/dL (0-100) VLDL Cholesterol, Calculated 17 mg/dL (0-40) Non-HDL Cholesterol Calculated 163 mg/dL (0-129) HDL Cholesterol 40 mg/dL (40-60) Cholesterol/HDL Ratio 5.1 Glucose (Fingerstick) 126 mg/dL (70-99) Microbiology Micro Microbiology 02/23/19 Blood Culture - Preliminary, Resulted NO GROWTH AFTER 1 DAY Physical Exam HEENT: Neck Supple W Full Motion Chest: Symmetric LUNGS: Clear to Auscultation Heart: S1S2, RRR (SR no ectopies), no gallops Abdomen: Soft N/T Extremities: No Calf Tenderness Neurology: alert, oriented, follow commands Assessment Assessment 1. Atypical CP: MSK. left shoulder remains with tenderness with palpation and movement, defer to PCP 2. SAUNDERS with CO poisoning, likely MC, cocaine use 3. Hypertensive/toxic encephalopathy: brain imaging negative so far, neurology following 4. Morbid obesity 5. HTN: much better. EF and WM nml 6. Tobaccoism 7. Heavy alcoholism: daily 8. Substance abuse: +opiates and cocaine 9. Suspect MC 10. DM2: A1C controlled with metformin at 6.2 +acanthoses nigricans Recommendations 1. Chlorthalidone and lisinopril. Hydralazine IV PRN. 2. ASA. lipitor 3. Discussed with in regards to having there gas water heater checked. No CO monitors at home. Lifestyle modifications. 4. Smoking cessation, ETOH curbing. ETOH withdrawal treatment per PCP 5. Cocaine and opiate cessation. Pt denies this but +UDS. 6. Will need oupt MC w/u S[employer] [employer] [employer] Feb 24, 2019 12:29
[2019-02-24] MEDS ORDERED: DEXTROSE 50% 25 GM / 50ML DISP.SYRIN. IV PRN (13:00)
--- NOTE | 2019-02-24 14:03 | PDOC ---
PROGRESS NOTES Chief Complaint Chief Complaint focal neurological symptoms Hypertensive encephalopathy Chronic headaches, probably related to hypertension. Consider migraine Possible carbon monoxide poisoning with elevated carbon monoxide on the blood gas, Uncontrolled hypertension smoker Anxiety NOS History of Present Illness History of Present Illness He seems more comfortable today Other notes reviewed, headache, requested Valium prior to MRI MRI of the brain to be done 2 PM later Knee x-ray and shoulder x-ray still pending Cards note reviewed - MSK cause of pain Also adjusted some BP meds Plan I did discuss with him target home tomorrow especially if MRI negative and BP is much better with BP adjustments made by cardiology He agrees Valium prior to MRI brain Follow-up knee and shoulder x-rays Vitals Vitals Vital Signs Date Time Temp Pulse Resp B/P (MAP) Pulse Ox O2 Delivery O2 Flow Rate FiO2 02/24/19 11:22 Room Air 02/24/19 11:00 98.3 66 20 129/61 (83) 97 98.3 Physical Exam General: Alert, Oriented X3, Cooperative, No acute distress Heart: Regular rate (SR per EKG), Normal S1, Normal S2, Other (3/6 systolic murmur to ARMANDO border) Abdomen: Soft, No tenderness, Other (obese) Extremities: No cyanosis, No edema Skin: No breakdown, No significant lesion Labs LABS Laboratory Tests Test 02/23/19 15:01 02/23/19 17:15 02/23/19 20:42 02/24/19 04:00 Lactic Acid Level 1.6 mmol/L (0.4-2.0) Troponin I Quantitative < 0.017 ng/mL (0.000-0.055) Glucose (Fingerstick) 158 mg/dL (70-99) White Blood Count 12.6 x10^3/uL (4.0-11.0) Red Blood Count 5.55 x10^6/uL (4.30-5.70) Hemoglobin 15.9 g/dL (13.0-17.5) Hematocrit 48.8 % (39.0-53.0) Mean Corpuscular Volume 88 fL (79-100) Mean Corpuscular Hemoglobin 29 pg (25-35) Mean Corpuscular Hemoglobin Concent 33 g/dL (31-37) Red Cell Distribution Width 14.5 % (11.5-14.5) Platelet Count 199 x10^3/uL (140-400) Neutrophils (%) (Auto) 84 % (31-73) Lymphocytes (%) (Auto) 11 % (24-48) Monocytes (%) (Auto) 5 % (0-9) Eosinophils (%) (Auto) 0 % (0-3) Basophils (%) (Auto) 0 % (0-3) Neutrophils # (Auto) 10.6 x10^3uL (1.8-7.7) Lymphocytes # (Auto) 1.4 x10^3/uL (1.0-4.8) Monocytes # (Auto) 0.6 x10^3/uL (0.0-1.1) Eosinophils # (Auto) 0.0 x10^3/uL (0.0-0.7) Basophils # (Auto) 0.0 x10^3/uL (0.0-0.2) Sodium Level 136 mmol/L (136-145) Potassium Level 4.6 mmol/L (3.5-5.1) Chloride Level 101 mmol/L (98-107) Carbon Dioxide Level 25 mmol/L (21-32) Anion Gap 10 (6-14) Blood Urea Nitrogen 19 mg/dL (8-26) Creatinine 1.3 mg/dL (0.7-1.3) Estimated GFR (Cockcroft-Gault) 71.3 Glucose Level 144 mg/dL (70-99) Calcium Level 9.2 mg/dL (8.5-10.1) Triglycerides Level 87 mg/dL (0-150) Cholesterol Level 203 mg/dL (0-200) LDL Cholesterol, Calculated 146 mg/dL (0-100) VLDL Cholesterol, Calculated 17 mg/dL (0-40) Non-HDL Cholesterol Calculated 163 mg/dL (0-129) HDL Cholesterol 40 mg/dL (40-60) Cholesterol/HDL Ratio 5.1 Test 02/24/19 07:26 02/24/19 11:48 Glucose (Fingerstick) 126 mg/dL (70-99) 103 mg/dL (70-99) Review of Systems Review of Systems A 14 point ROS was completed with the following noted as positive: Other systems reviewed and negative. \CONSTITUTIONAL: No fever or chills EYES: No recent changes SKIN: No rash or itching CARDIOVASCULAR: No chest pain, syncope, palpitations, or edema RESPIRATORY: No SOB or cough GASTROINTESTINAL: No nausea, vomiting or abdominal pain NEUROLOGICAL: No headaches or weakness ENDOCRINE: No cold or heat intolerance GENITOURINARY: No urgency or frequency of urination MUSCULOSKELETAL: No back pain or joint pain LYMPHATICS: No enlarged lymph nodes PSYCHIATRIC: No anxiety or depression Assessment and Plan Assessmemt and Plan Problems Medical Problems: (1) Hypertension Status: Acute (2) Shortness of breath Status: Acute (3) Smoking addiction Status: Acute Comment Review of Relevant I have reviewed the following items alison (where applicable) has been applied. Labs Laboratory Tests Test 02/23/19 11:03 02/23/19 11:10 02/23/19 13:15 02/23/19 15:01 O2 Saturation 97 % (92-99) Arterial Blood pH 7.45 (7.35-7.45) Arterial Blood pCO2 at Patient Temp 34 mmHg (35-46) Arterial Blood pO2 at Patient Temp 88 mmHg (75-108) Arterial Blood HCO3 23 mmol/L (21-28) Arterial Blood Base Excess 0 mmol/L (-3-3) Oxyhemoglobin 93.1 % Methemoglobin 0.5 % (0.0-1.9) Carbon Monoxide, Quantitative 3.8 % (0.0-1.9) FiO2 21 White Blood Count 8.1 x10^3/uL (4.0-11.0) Red Blood Count 5.61 x10^6/uL (4.30-5.70) Hemoglobin 16.2 g/dL (13.0-17.5) Hematocrit 48.6 % (39.0-53.0) Mean Corpuscular Volume 87 fL (79-100) Mean Corpuscular Hemoglobin 29 pg (25-35) Mean Corpuscular Hemoglobin Concent 33 g/dL (31-37) Red Cell Distribution Width 14.5 % (11.5-14.5) Platelet Count 200 x10^3/uL (140-400) Neutrophils (%) (Auto) 59 % (31-73) Lymphocytes (%) (Auto) 31 % (24-48) Monocytes (%) (Auto) 8 % (0-9) Eosinophils (%) (Auto) 1 % (0-3) Basophils (%) (Auto) 1 % (0-3) Neutrophils # (Auto) 4.8 x10^3uL (1.8-7.7) Lymphocytes # (Auto) 2.5 x10^3/uL (1.0-4.8) Monocytes # (Auto) 0.6 x10^3/uL (0.0-1.1) Eosinophils # (Auto) 0.1 x10^3/uL (0.0-0.7) Basophils # (Auto) 0.1 x10^3/uL (0.0-0.2) Prothrombin Time 12.1 SEC (11.7-14.0) Prothromb Time International Ratio 0.9 (0.8-1.1) D-Dimer (Nasrin) 0.37 ug/mlFEU (0.00-0.50) Sodium Level 139 mmol/L (136-145) Potassium Level 4.4 mmol/L (3.5-5.1) Chloride Level 103 mmol/L (98-107) Carbon Dioxide Level 25 mmol/L (21-32) Anion Gap 11 (6-14) Blood Urea Nitrogen 19 mg/dL (8-26) Creatinine 1.3 mg/dL (0.7-1.3) Estimated GFR (Cockcroft-Gault) 71.3 BUN/Creatinine Ratio 15 (6-20) Glucose Level 108 mg/dL (70-99) Hemoglobin A1c 6.2 % (4.8-5.6) Lactic Acid Level 1.4 mmol/L (0.4-2.0) 1.6 mmol/L (0.4-2.0) Calcium Level 9.4 mg/dL (8.5-10.1) Magnesium Level 2.0 mg/dL (1.8-2.4) Total Bilirubin 0.3 mg/dL (0.2-1.0) Aspartate Amino Transf (AST/SGOT) 18 U/L (15-37) Alanine Aminotransferase (ALT/SGPT) 28 U/L (16-63) Alkaline Phosphatase 72 U/L (46-116) Creatine Kinase 232 U/L (39-308) Creatine Kinase MB (Mass) 1.8 ng/mL (0.0-3.6) Creatine Kinase MB Relative Index 0.8 % (0-4) Troponin I Quantitative < 0.017 ng/mL (0.000-0.055) FS-Pwh-[id number]-Type Natriuretic Peptide 14 pg/mL (0-124) Total Protein 7.3 g/dL (6.4-8.2) Albumin 3.6 g/dL (3.4-5.0) Albumin/Globulin Ratio 1.0 (1.0-1.7) Thyroid Stimulating Hormone (TSH) 0.654 uIU/mL (0.358-3.74) Urine Opiates Screen Pos (NEG) Urine Methadone Screen Neg (NEG) Urine Barbiturates Neg (NEG) Urine Phencyclidine Screen Neg (NEG) Urine Amphetamine/Methamphetamine Neg (NEG) Urine Benzodiazepines Screen Neg (NEG) Urine Cocaine Screen Pos (NEG) Urine Cannabinoids Screen Neg (NEG) Urine Ethyl Alcohol Neg (NEG) Test 02/23/19 17:15 02/23/19 20:42 02/24/19 04:00 02/24/19 07:26 Troponin I Quantitative < 0.017 ng/mL (0.000-0.055) Glucose (Fingerstick) 158 mg/dL (70-99) 126 mg/dL (70-99) White Blood Count 12.6 x10^3/uL (4.0-11.0) Red Blood Count 5.55 x10^6/uL (4.30-5.70) Hemoglobin 15.9 g/dL (13.0-17.5) Hematocrit 48.8 % (39.0-53.0) Mean Corpuscular Volume 88 fL (79-100) Mean Corpuscular Hemoglobin 29 pg (25-35) Mean Corpuscular Hemoglobin Concent 33 g/dL (31-37) Red Cell Distribution Width 14.5 % (11.5-14.5) Platelet Count 199 x10^3/uL (140-400) Neutrophils (%) (Auto) 84 % (31-73) Lymphocytes (%) (Auto) 11 % (24-48) Monocytes (%) (Auto) 5 % (0-9) Eosinophils (%) (Auto) 0 % (0-3) Basophils (%) (Auto) 0 % (0-3) Neutrophils # (Auto) 10.6 x10^3uL (1.8-7.7) Lymphocytes # (Auto) 1.4 x10^3/uL (1.0-4.8) Monocytes # (Auto) 0.6 x10^3/uL (0.0-1.1) Eosinophils # (Auto) 0.0 x10^3/uL (0.0-0.7) Basophils # (Auto) 0.0 x10^3/uL (0.0-0.2) Sodium Level 136 mmol/L (136-145) Potassium Level 4.6 mmol/L (3.5-5.1) Chloride Level 101 mmol/L (98-107) Carbon Dioxide Level 25 mmol/L (21-32) Anion Gap 10 (6-14) Blood Urea Nitrogen 19 mg/dL (8-26) Creatinine 1.3 mg/dL (0.7-1.3) Estimated GFR (Cockcroft-Gault) 71.3 Glucose Level 144 mg/dL (70-99) Calcium Level 9.2 mg/dL (8.5-10.1) Triglycerides Level 87 mg/dL (0-150) Cholesterol Level 203 mg/dL (0-200) LDL Cholesterol, Calculated 146 mg/dL (0-100) VLDL Cholesterol, Calculated 17 mg/dL (0-40) Non-HDL Cholesterol Calculated 163 mg/dL (0-129) HDL Cholesterol 40 mg/dL (40-60) Cholesterol/HDL Ratio 5.1 Test 02/24/19 11:48 Glucose (Fingerstick) 103 mg/dL (70-99) Laboratory Tests Test 02/23/19 15:01 02/23/19 17:15 02/23/19 20:42 02/24/19 04:00 Lactic Acid Level 1.6 mmol/L (0.4-2.0) Troponin I Quantitative < 0.017 ng/mL (0.000-0.055) Glucose (Fingerstick) 158 mg/dL (70-99) White Blood Count 12.6 x10^3/uL (4.0-11.0) Red Blood Count 5.55 x10^6/uL (4.30-5.70) Hemoglobin 15.9 g/dL (13.0-17.5) Hematocrit 48.8 % (39.0-53.0) Mean Corpuscular Volume 88 fL (79-100) Mean Corpuscular Hemoglobin 29 pg (25-35) Mean Corpuscular Hemoglobin Concent 33 g/dL (31-37) Red Cell Distribution Width 14.5 % (11.5-14.5) Platelet Count 199 x10^3/uL (140-400) Neutrophils (%) (Auto) 84 % (31-73) Lymphocytes (%) (Auto) 11 % (24-48) Monocytes (%) (Auto) 5 % (0-9) Eosinophils (%) (Auto) 0 % (0-3) Basophils (%) (Auto) 0 % (0-3) Neutrophils # (Auto) 10.6 x10^3uL (1.8-7.7) Lymphocytes # (Auto) 1.4 x10^3/uL (1.0-4.8) Monocytes # (Auto) 0.6 x10^3/uL (0.0-1.1) Eosinophils # (Auto) 0.0 x10^3/uL (0.0-0.7) Basophils # (Auto) 0.0 x10^3/uL (0.0-0.2) Sodium Level 136 mmol/L (136-145) Potassium Level 4.6 mmol/L (3.5-5.1) Chloride Level 101 mmol/L (98-107) Carbon Dioxide Level 25 mmol/L (21-32) Anion Gap 10 (6-14) Blood Urea Nitrogen 19 mg/dL (8-26) Creatinine 1.3 mg/dL (0.7-1.3) Estimated GFR (Cockcroft-Gault) 71.3 Glucose Level 144 mg/dL (70-99) Calcium Level 9.2 mg/dL (8.5-10.1) Triglycerides Level 87 mg/dL (0-150) Cholesterol Level 203 mg/dL (0-200) LDL Cholesterol, Calculated 146 mg/dL (0-100) VLDL Cholesterol, Calculated 17 mg/dL (0-40) Non-HDL Cholesterol Calculated 163 mg/dL (0-129) HDL Cholesterol 40 mg/dL (40-60) Cholesterol/HDL Ratio 5.1 Test 02/24/19 07:26 02/24/19 11:48 Glucose (Fingerstick) 126 mg/dL (70-99) 103 mg/dL (70-99) Microbiology 02/23/19 Blood Culture - Preliminary, Resulted NO GROWTH AFTER 1 DAY Medications Current Medications Albuterol/ Ipratropium (Duoneb) 3 ml 1X ONCE NEB Last administered on 02/23/19at 11:19; Start 02/23/19 at 11:15; Stop 02/23/19 at 11:16; Status DC Aspirin (Jonathan Aspirin) 325 mg 1X ONCE PO Last administered on 02/23/19at 11:25; Start 02/23/19 at 11:15; Stop 02/23/19 at 11:16; Status DC Morphine Sulfate (Morphine Sulfate) 4 mg PRN Q15MIN PRN IV/SQ PAIN GREATER THAN 3/10 Last administered on 02/23/19at 11:33; Start 02/23/19 at 11:15; Stop 02/24/19 at 11:14; Status DC Methylprednisolone Sodium Succinate (SOLU-Medrol 125MG VIAL) 125 mg 1X ONCE IV Last administered on 02/23/19at 11:25; Start 02/23/19 at 11:15; Stop 02/23/19 at 11:16; Status DC Ondansetron HCl (Zofran) 4 mg PRN Q8HRS PRN IV NAUSEA/VOMITING; Start 02/23/19 at 12:45; Stop 02/24/19 at 12:44; Status DC Acetaminophen (Tylenol) 650 mg PRN Q4HRS PRN PO FEVER; Start 02/23/19 at 12:45; Stop 02/24/19 at 12:44; Status DC Albuterol/ Ipratropium (Duoneb) 3 ml RTQID NEB Last administered on 02/24/19at 11:22; Start 02/23/19 at 13:00; Stop 02/24/19 at 12:59; Status DC Prednisone (Prednisone) 40 mg DAILY PO ; Start 02/24/19 at 09:00; Stop 02/24/19 at 09:00; Status DC Enoxaparin Sodium (Lovenox Per Pharmacy Prophylaxis Dosing) 1 each PRN DAILY PRN MC SEE COMMENTS; Start 02/23/19 at 16:00 Aspirin (Jonathan Aspirin) 325 mg DAILYWBKFT PO ; Start 02/24/19 at 08:00; Stop 02/24/19 at 08:00; Status DC Enoxaparin Sodium (Lovenox 40mg Syringe) 40 mg Q12H SQ Last administered on 02/23/19at 16:48; Start 02/23/19 at 16:00; Stop 02/24/19 at 00:39; Status DC Hydralazine HCl (Apresoline Inj) 10 mg PRN Q4HRS PRN IVP ELEVATED BP, SEE COMMENTS; Start 02/23/19 at 16:15 Amlodipine Besylate (Norvasc) 10 mg DAILY PO Last administered on 02/23/19at 16:48; Start 02/23/19 at 16:30; Stop 02/23/19 at 16:51; Status DC Amlodipine Besylate (Norvasc) 10 mg 1X ONCE PO ; Start 02/23/19 at 17:00; Stop 02/23/19 at 17:01; Status UNV Lisinopril (Prinivil) 20 mg DAILY PO Last administered on 02/24/19at 09:02; Start 02/23/19 at 17:00 Aspirin (Ecotrin) 81 mg DAILYWBKFT PO ; Start 02/24/19 at 08:00; Stop 02/24/19 at 08:00; Status DC Chlorthalidone (Thalitone) 25 mg DAILY PO Last administered on 02/24/19at 09:03; Start 02/23/19 at 17:00 Simvastatin (Zocor) 10 mg QHS PO ; Start 02/23/19 at 21:00; Stop 02/24/19 at 12:28; Status DC Acetaminophen (Tylenol) 650 mg PRN Q6HRS PRN PO TEMP > 100.4F; Start 02/23/19 at 17:15 Acetaminophen (Tylenol Supp) 650 mg PRN Q4HRS PRN UT TEMP > 100.4F; Start 02/23/19 at 17:15 Aspirin (Ecotrin) 325 mg DAILYWBKFT PO Last administered on 02/24/19at 09:02; Start 02/24/19 at 08:00 Aspirin (Aspirin Rectal Supp) 300 mg PRN DAILY PRN UT IF UNABLE TO TAKE PO; Start 02/23/19 at 17:15 Oxycodone/ Acetaminophen (Percocet 5/325) 1 tab PRN Q6HRS PRN PO PAIN Last administered on 02/24/19at 09:02; Start 02/23/19 at 18:00 Nicotine (Nicoderm Cq 7mg) 1 patch PRN DAILY PRN TD SMOKING CESSATION Last administered on 02/24/19at 09:02; Start 02/23/19 at 20:15 Iohexol (Omnipaque 350 Mg/ml) 100 ml 1X ONCE IV Last administered on 02/23/19at 22:01; Start 02/23/19 at 22:00; Stop 02/23/19 at 22:03; Status DC Info (CONTRAST GIVEN -- Rx MONITORING) 1 each PRN DAILY PRN MC SEE COMMENTS; Start 02/23/19 at 22:15; Stop 02/25/19 at 22:14 Enoxaparin Sodium (Lovenox 40mg Syringe) 40 mg Q12HR SQ Last administered on 02/24/19at 09:03; Start 02/24/19 at 09:00 Diazepam (Valium) 10 mg OC PROC PRN PO BROKERAGE CLERK FOR MRI; MR X1 Last administered on 02/24/19at 13:47; Start 02/24/19 at 09:00; Stop 02/24/19 at 13:48; Status DC Atorvastatin Calcium (Lipitor) 20 mg QHS PO ; Start 02/24/19 at 21:00 Insulin Human Lispro (HumaLOG) 0-7 UNITS TIDWMEALS SQ ; Start 02/24/19 at 17:00 Dextrose (Dextrose 50%-Water Syringe) 12.5 gm PRN Q15MIN PRN IV SEE COMMENTS; Start 02/24/19 at 13:00 Active Scripts Active Flomax (Tamsulosin Hcl) 0.4 Mg Cap.er.24h 1 Cap PO DAILY 30 Days Reported Hydrochlorothiazide Tablet (Hydrochlorothiazide) 25 Mg Tablet 25 Mg PO DAILY Fluoxetine Hcl 20 Mg Capsule 1 Cap PO DAILY Metformin Hcl 500 Mg Tablet 500 Mg PO BIDWMEALS Amitriptyline Hcl 25 Mg Tablet 1 Tab PO QHS Protonix (Pantoprazole Sodium) 20 Mg Tablet.dr 2 Tab PO DAILY No Known Medications Prior To Admisstion (Info) Each 1 Each Vitals/I & O Vital Sign - Last 24 Hours 02/23/19 02/23/19 02/23/19 02/23/19 15:40 16:48 17:51 18:33 Pulse 86 85 Resp 18 B/P (MAP) 152/91 140/70 Pulse Ox 95 95 O2 Delivery Room Air Room Air 02/23/19 02/23/19 02/23/19 02/23/19 19:30 19:45 20:16 23:21 Temp 98.2 97.6 98.2 97.6 Pulse 97 77 Resp 18 20 B/P (MAP) 134/79 (97) 128/71 (90) Pulse Ox 95 97 O2 Delivery Room Air Room Air Room Air Room Air 02/24/19 02/24/19 02/24/19 02/24/19 03:22 07:00 07:10 08:00 Temp 97.4 98.0 97.4 98.0 Pulse 58 68 Resp 20 20 B/P (MAP) 114/56 (75) 125/66 (85) Pulse Ox 98 97 95 O2 Delivery Room Air Room Air Room Air Room Air 02/24/19 02/24/19 02/24/19 09:02 11:00 11:22 Temp 98.3 98.3 Pulse 68 66 Resp 20 B/P (MAP) 125/66 129/61 (83) Pulse Ox 97 O2 Delivery Room Air Room Air Intake and Output 02/23/19 02/23/19 02/24/19 15:00 23:00 07:00 Intake Total 520 ml 400 ml Output Total 400 ml Balance 520 ml 0 ml JULIANNA GALLARDO MD Feb 24, 2019 14:03
--- NOTE | 2019-02-24 14:07 | NUR ---
SW following pt for anticipated dc needs. Chart reviewed. Pt lives at home with family. OT recommends home with outpatient/home independent. PT pending. No other needs noted at this time.
[2019-02-24 15:24] VITALS: BP 132/60
--- NOTE | 2019-02-24 15:44 | RAD ---
MRI of the Brain without Contrast 02/24/2019 Clinical History: Left-sided weakness. Right-sided numbness.. Technique: Unenhanced T1-weighted sagittal and axial, T2-weighted axial and coronal and FLAIR, gradient echo and diffusion-weighted axial images of the brain were obtained. Findings: Comparison is made to patient's CT scan of the head dated 05/30/2015. Some of the images are degraded by patient motion. The ventricles and sulci are within normal limits in size and configuration. No area of significant abnormal signal intensity is seen involving the brain parenchyma. No extra-axial fluid collection is noted. There is no MRI evidence of acute ischemia/infarction. Mild mucosal thickening in seen scattered throughout the paranasal sinuses. There are small bilateral mastoid effusions. Normal flow voids are seen within the major vascular structures surrounding the brain parenchyma. Impression: 1. Negative MRI of the brain. 2. Mild paranasal sinus and mastoid disease. Electronically signed by: Izaiah Carpio MD (02/24/2019 3:41 PM) [id number]
--- NOTE | 2019-02-24 16:13 | RAD ---
SHOULDER 2+V LEFT, KNEE LEFT 2V History: Pain.. 3 view left shoulder No evidence of acute fracture. No aggressive bone destruction. Joint spaces appear intact. Small ossicle overlying the acromiohumeral space, uncertain significance but possibly loose body. IMPRESSION: 1. No acute findings. 2. Possible loose body at the subdeltoid bursa. 2 view left knee Mild degenerative spurring about the knee. No acute fracture or aggressive bone destruction. IMPRESSION: Mild degenerative change. Electronically signed by: Faizan Campos MD (02/24/2019 4:11 PM) [id number]
[2019-02-24] MEDS: INSULIN LISPRO 300 UNITS/3 ML INSULN.PEN. SQ SCH (17:06)
--- NOTE | 2019-02-24 18:43 | NUR ---
bucket hooker discontinued. Patient transferring to room 521. Report called to Dulce BARBOSA. Patient ambulated down with staff and . All belongings with patient
[2019-02-24 19:00] VITALS: BP 123/59
[2019-02-24] MEDS ORDERED: ATORVASTATIN CALCIUM 20 MG TABLET PO SCH (21:00)
[2019-02-24 23:00] VITALS: BP 127/57
[2019-02-25 03:00] VITALS: BP 136/59
[2019-02-25 07:00] VITALS: BP 129/71
[2019-02-25] MEDS: IPRATRPIUM/ALBUTEROL 0.5/2.5MG 3 ML NEBU. NEB SCH (07:41)
[2019-02-25] MEDS: INSULIN LISPRO 300 UNITS/3 ML INSULN.PEN. SQ SCH (08:00)
[2019-02-25] MEDS: CHLORTHALIDONE 25 MG TABLET. PO SCH (08:16)
[2019-02-25] MEDS: ASPIRIN ENTERIC COATED 325 MG TABLET.DR. PO SCH (08:17)
[2019-02-25] MEDS: ENOXAPARIN 40 MG/0.4 ML SYRINGE. SQ SCH (08:17)
[2019-02-25] MEDS: LISINOPRIL 20 MG TABLET PO SCH (08:17)
[2019-02-25] MEDS ORDERED: CHLO25TA10 PO (08:40)
[2019-02-25] MEDS ORDERED: LISI-130 PO (08:40)
[2019-02-25] MEDS ORDERED: ASPI325T11 PO (08:40)
[2019-02-25] MEDS ORDERED: ATOR20TA58 PO (08:40)
[2019-02-25] MEDS ORDERED: Nicotine 7MG TD (08:40)
[2019-02-25] MEDS ORDERED: OXYC1TAB15 PO (08:40)
[2019-02-25] MEDS: oxyCODONE/APAP 5/325 1 TAB TABLET PO PRN (08:48)
[2019-02-25 11:00] VITALS: BP 127/58
--- NOTE | 2019-02-25 11:18 | PDOC3 ---
Discharge Summary Visit Information Date of Admission: Feb 23, 2019 Date of Discharge: Feb 25, 2019 Admitting Diagnosis Comment: focal neurological symptoms neg MRI Hypertensive encephalopathy resolved Chronic headaches, probably related to hypertension. Consider migraine Possible carbon monoxide poisoning with elevated carbon monoxide on the blood gas, Uncontrolled hypertension smoker Anxiety NOS Final Diagnosis Problems Medical Problems: (1) Hypertension Status: Acute (2) Shortness of breath Status: Acute (3) Smoking addiction Status: Acute Brief Hospital Course Allergies Allergies Coded Allergies Type Severity Reaction Last Updated Verified Penicillins Allergy Intermediate 05/30/15 Yes Vital Signs Vital Signs Date Time Temp Pulse Resp B/P (MAP) Pulse Ox O2 Delivery O2 Flow Rate FiO2 02/25/19 09:49 Room Air 02/25/19 08:17 64 129/71 02/25/19 07:00 97.8 18 98 97.8 Lab Results Laboratory Tests Test 02/23/19 13:15 02/23/19 15:01 02/23/19 17:15 02/23/19 20:42 Urine Opiates Screen Pos (NEG) Urine Methadone Screen Neg (NEG) Urine Barbiturates Neg (NEG) Urine Phencyclidine Screen Neg (NEG) Urine Amphetamine/Methamphetamine Neg (NEG) Urine Benzodiazepines Screen Neg (NEG) Urine Cocaine Screen Pos (NEG) Urine Cannabinoids Screen Neg (NEG) Urine Ethyl Alcohol Neg (NEG) Lactic Acid Level 1.6 mmol/L (0.4-2.0) Troponin I Quantitative < 0.017 ng/mL (0.000-0.055) Glucose (Fingerstick) 158 mg/dL (70-99) Test 02/24/19 04:00 02/24/19 07:26 02/24/19 11:48 02/24/19 16:42 White Blood Count 12.6 x10^3/uL (4.0-11.0) Red Blood Count 5.55 x10^6/uL (4.30-5.70) Hemoglobin 15.9 g/dL (13.0-17.5) Hematocrit 48.8 % (39.0-53.0) Mean Corpuscular Volume 88 fL (79-100) Mean Corpuscular Hemoglobin 29 pg (25-35) Mean Corpuscular Hemoglobin Concent 33 g/dL (31-37) Red Cell Distribution Width 14.5 % (11.5-14.5) Platelet Count 199 x10^3/uL (140-400) Neutrophils (%) (Auto) 84 % (31-73) Lymphocytes (%) (Auto) 11 % (24-48) Monocytes (%) (Auto) 5 % (0-9) Eosinophils (%) (Auto) 0 % (0-3) Basophils (%) (Auto) 0 % (0-3) Neutrophils # (Auto) 10.6 x10^3uL (1.8-7.7) Lymphocytes # (Auto) 1.4 x10^3/uL (1.0-4.8) Monocytes # (Auto) 0.6 x10^3/uL (0.0-1.1) Eosinophils # (Auto) 0.0 x10^3/uL (0.0-0.7) Basophils # (Auto) 0.0 x10^3/uL (0.0-0.2) Sodium Level 136 mmol/L (136-145) Potassium Level 4.6 mmol/L (3.5-5.1) Chloride Level 101 mmol/L (98-107) Carbon Dioxide Level 25 mmol/L (21-32) Anion Gap 10 (6-14) Blood Urea Nitrogen 19 mg/dL (8-26) Creatinine 1.3 mg/dL (0.7-1.3) Estimated GFR (Cockcroft-Gault) 71.3 Glucose Level 144 mg/dL (70-99) Calcium Level 9.2 mg/dL (8.5-10.1) Triglycerides Level 87 mg/dL (0-150) Cholesterol Level 203 mg/dL (0-200) LDL Cholesterol, Calculated 146 mg/dL (0-100) VLDL Cholesterol, Calculated 17 mg/dL (0-40) Non-HDL Cholesterol Calculated 163 mg/dL (0-129) HDL Cholesterol 40 mg/dL (40-60) Cholesterol/HDL Ratio 5.1 Glucose (Fingerstick) 126 mg/dL (70-99) 103 mg/dL (70-99) 130 mg/dL (70-99) Test 02/24/19 19:25 02/25/19 07:23 Glucose (Fingerstick) 106 mg/dL (70-99) 105 mg/dL (70-99) Laboratory Tests Test 02/24/19 11:48 02/24/19 16:42 02/24/19 19:25 02/25/19 07:23 Glucose (Fingerstick) 103 mg/dL (70-99) 130 mg/dL (70-99) 106 mg/dL (70-99) 105 mg/dL (70-99) Brief Hospital Course Mr. Nunez is a 48 old -[place] male who came in with headache and hypertensive encephalopathy. Blood pressure better, headaches better with narcotics. MRI negative for any acute CVA, comanage with neurology. Had some chest pain which proved to be MSK as per cardiology assessment and I agree. Also had some left shoulder pain but with negative x-rays. I did consult physiatry. Most or less, sprain or strain with which will not benefit from injections. Patient is going home today with no PT needs, satisfied with his workup and course Discussed with at bedside Patient seen and examined, discussed with physiatry DC time 31 minutes cumulative Consults physiatry, cardiology, neurology Procedures performed, multiple imaging x-ray shoulder, x-ray knee, MRI brain All unimpressive, I have provided copies of test results Discharge Information Condition at Discharge: Improved, Stable Follow Up: Weeks (pcp as scheduled or prn) Disposition/Orders: D/C to Home Scheduled Amitriptyline Hcl (Amitriptyline Hcl) 25 Mg Tablet, 1 TAB PO QHS for Sleep difficulties, #30 Ref 5 (Reported) Entered as Reported by: LUDIN NGUYỄN on 02/23/191611 Last Action: New Order on 02/23/191611 by LUDIN NGUYỄN Aspirin (Aspirin Ec) 325 Mg Tablet.dr, 325 MG PO DAILYWBKFT for prevention MDD 1, #90 Prescribed by: JULIANNA GALLARDO on 02/25/19 0840 Atorvastatin Calcium (Atorvastatin Calcium) 20 Mg Tablet, 20 MG PO QHS for lipids MDD 1, #90 Prescribed by: JULIANNA GALLARDO on 02/25/19 0840 Chlorthalidone (Chlorthalidone ) 25 Mg Tablet, 25 MG PO DAILY for htn MDD 1, #60 Prescribed by: JULIANNA GALLARDO on 02/25/19 0840 Fluoxetine Hcl (Fluoxetine Hcl) 20 Mg Capsule, 1 CAP PO DAILY for Depression/Anxiety, #90 Ref 1 (Reported) Entered as Reported by: LUDIN NGUYỄN on 02/23/192018 Last Taken: 20mg PO Daily on 02/23/19 0900 Last Action: New Order on 02/23/192018 by LUDIN NGUYỄN Lisinopril (Lisinopril) 40 Mg Tablet, 20 MG PO DAILY for htn MDD 1, #90 Prescribed by: JULIANNA GALLARDO on 02/25/19 0840 Metformin Hcl (Metformin Hcl) 500 Mg Tablet, 500 MG PO BIDWMEALS for ANTI- DIABETIC, Ref 0 (Reported) Entered as Reported by: LUDIN NGUYỄN on 02/23/191611 Last Taken: 500mg PO BID daily on 02/23/19 09 Last Action: New Order on 02/23/191611 by LUDIN NGUYỄN Pantoprazole Sodium (Protonix) 20 Mg Tablet.dr, 2 TAB PO DAILY for GERD, #30 (Reported) Entered as Reported by: LUDIN NGUYỄN on 02/23/191611 Last Taken: 40mg PO daily on 02/23/19899 Last Action: New Order on 02/23/191611 by LUDIN NGUYỄN Tamsulosin Hcl (Flomax) 0.4 Mg Cap.er.24h, 1 CAP PO DAILY for 30 Days, #30 Ref 0 Prescribed by: EMMA REGAN APRN on 04/29/182325 Scheduled PRN Oxycodone/Apap 5-325 (Percocet 5-325 Mg Tablet ) 1 Each Tablet, 1 TAB PO PRN Q6HRS PRN for PAIN MDD 1, #20 Prescribed by: JULIANNA GALLARDO on 02/25/19 0840 [Nicotine 7MG] 1 PATCH PATCH, 1 PATCH TD PRN DAILY PRN for SMOKING CESSATION, # 10 Prescribed by: JULIANNA GALLARDO on 02/25/19 0840 Discontinued Medications Hydrochlorothiazide (Hydrochlorothiazide Tablet ) 25 Mg Tablet, 25 MG PO DAILY for DIURETIC, Ref 0 (Reported) Entered as Reported by: REINIER OGDEN on 02/23/192217 Last Action: New Order on 02/23/192217 by REINIER OGDEN Info (No Known Medications Prior To Admisstion) Each, 1 EACH MC, (Reported) Entered as Reported by: HASEEB BOYCE on 05/30/15 1413 JULIANNA GALLARDO MD Feb 25, 2019 11:18
--- NOTE | 2019-02-25 11:50 | PDOC2 ---
CONSULT Date of Consult Date of Consult DATE: 02/25/19 TIME: 11:40 Reason for Consult Reason for Consult: Rehab evaluation about left shoulde pain. Referring Physician Referring Physician: . Identification/Chief Complaint Chief Complaint Left shoulder pain for 2 days without any injury. Past Medical History Cardiovascular: HTN Pulmonary: No pertinent hx CENTRAL NERVOUS SYSTEM: Other (No pertinent history) GI: GERD Heme/Onc: No pertinent hx Hepatobiliary: No pertinent hx Psych: Depression Musculoskeletal: Osteoarthritis Rheumatologic: No pertinent hx Infectious disease: No pertinent hx ENT: No pertinent hx Renal/: Chronic renal insuff, Benign prostatic enlarg. Endocrine: Diabetes (borderline) Dermatology: No pertinent hx Past Surgical History Past Surgical History: Other (left finger cyst removal), No pertinent history Family History Family History: Stroke (mother) Social History Social History: Parent, Grandparents <1 pack per day (>10 yrs) ALCOHOL: heavy (1/2 pint at least of voka and at least 2 bottles of budice) Drugs: Cocaine Lives: with Family Current Problem List Problem List Problems Medical Problems: (1) Hypertension Status: Acute (2) Shortness of breath Status: Acute (3) Smoking addiction Status: Acute Current Medications Current Medications Current Medications Albuterol/ Ipratropium (Duoneb) 3 ml 1X ONCE NEB Last administered on 02/23/19at 11:19; Start 02/23/19 at 11:15; Stop 02/23/19 at 11:16; Status DC Aspirin (Jonathan Aspirin) 325 mg 1X ONCE PO Last administered on 02/23/19at 11:25; Start 02/23/19 at 11:15; Stop 02/23/19 at 11:16; Status DC Morphine Sulfate (Morphine Sulfate) 4 mg PRN Q15MIN PRN IV/SQ PAIN GREATER THAN 3/10 Last administered on 02/23/19at 11:33; Start 02/23/19 at 11:15; Stop 02/24/19 at 11:14; Status DC Methylprednisolone Sodium Succinate (SOLU-Medrol 125MG VIAL) 125 mg 1X ONCE IV Last administered on 02/23/19at 11:25; Start 02/23/19 at 11:15; Stop 02/23/19 at 11:16; Status DC Ondansetron HCl (Zofran) 4 mg PRN Q8HRS PRN IV NAUSEA/VOMITING; Start 02/23/19 at 12:45; Stop 02/24/19 at 12:44; Status DC Acetaminophen (Tylenol) 650 mg PRN Q4HRS PRN PO FEVER; Start 02/23/19 at 12:45; Stop 02/24/19 at 12:44; Status DC Albuterol/ Ipratropium (Duoneb) 3 ml RTQID NEB Last administered on 02/24/19at 15:18; Start 02/23/19 at 13:00; Stop 02/24/19 at 12:59; Status DC Prednisone (Prednisone) 40 mg DAILY PO ; Start 02/24/19 at 09:00; Stop 02/24/19 at 09:00; Status DC Enoxaparin Sodium (Lovenox Per Pharmacy Prophylaxis Dosing) 1 each PRN DAILY PRN MC SEE COMMENTS; Start 02/23/19 at 16:00 Aspirin (Jonathan Aspirin) 325 mg DAILYWBKFT PO ; Start 02/24/19 at 08:00; Stop 02/24/19 at 08:00; Status DC Enoxaparin Sodium (Lovenox 40mg Syringe) 40 mg Q12H SQ Last administered on 02/23/19at 16:48; Start 02/23/19 at 16:00; Stop 02/24/19 at 00:39; Status DC Hydralazine HCl (Apresoline Inj) 10 mg PRN Q4HRS PRN IVP ELEVATED BP, SEE COMMENTS; Start 02/23/19 at 16:15 Amlodipine Besylate (Norvasc) 10 mg DAILY PO Last administered on 02/23/19at 16:48; Start 02/23/19 at 16:30; Stop 02/23/19 at 16:51; Status DC Amlodipine Besylate (Norvasc) 10 mg 1X ONCE PO ; Start 02/23/19 at 17:00; Stop 02/23/19 at 17:01; Status UNV Lisinopril (Prinivil) 20 mg DAILY PO Last administered on 02/25/19at 08:17; Start 02/23/19 at 17:00 Aspirin (Ecotrin) 81 mg DAILYWBKFT PO ; Start 02/24/19 at 08:00; Stop 02/24/19 at 08:00; Status DC Chlorthalidone (Thalitone) 25 mg DAILY PO Last administered on 02/25/19 08:16; Start 02/23/19 at 17:00 Simvastatin (Zocor) 10 mg QHS PO ; Start 02/23/19 at 21:00; Stop 02/24/19 at 12:28; Status DC Acetaminophen (Tylenol) 650 mg PRN Q6HRS PRN PO TEMP > 100.4F; Start 02/23/19 at 17:15 Acetaminophen (Tylenol Supp) 650 mg PRN Q4HRS PRN MA TEMP > 100.4F; Start 02/23/19 at 17:15 Aspirin (Ecotrin) 325 mg DAILYWBKFT PO Last administered on 02/25/19at 08:17; Start 02/24/19 at 08:00 Aspirin (Aspirin Rectal Supp) 300 mg PRN DAILY PRN MA IF UNABLE TO TAKE PO; Start 02/23/19 at 17:15 Oxycodone/ Acetaminophen (Percocet 5/325) 1 tab PRN Q6HRS PRN PO PAIN Last administered on 02/25/19at 08:48; Start 02/23/19 at 18:00 Nicotine (Nicoderm Cq 7mg) 1 patch PRN DAILY PRN TD SMOKING CESSATION Last administered on 02/24/19 09:02; Start 02/23/19 at 20:15 Iohexol (Omnipaque 350 Mg/ml) 100 ml 1X ONCE IV Last administered on 02/23/19at 22:01; Start 02/23/19 at 22:00; Stop 02/23/19 at 22:03; Status DC Info (CONTRAST GIVEN -- Rx MONITORING) 1 each PRN DAILY PRN MC SEE COMMENTS; Start 02/23/19 at 22:15; Stop 02/25/19 at 22:14 Enoxaparin Sodium (Lovenox 40mg Syringe) 40 mg Q12HR SQ Last administered on 02/25/19 08:17; Start 02/24/19 at 09:00 Diazepam (Valium) 10 mg OC PROC PRN PO SHIPPING COORDINATOR FOR MRI; MR X1 Last administered on 02/24/19at 13:47; Start 02/24/19 at 09:00; Stop 02/24/19 at 13:48; Status DC Atorvastatin Calcium (Lipitor) 20 mg QHS PO Last administered on 02/24/19at 21:57; Start 02/24/19 at 21:00 Insulin Human Lispro (HumaLOG) 0-7 UNITS TIDWMEALS SQ ; Start 02/24/19 at 17:00 Dextrose (Dextrose 50%-Water Syringe) 12.5 gm PRN Q15MIN PRN IV SEE COMMENTS; Start 02/24/19 at 13:00 Albuterol/ Ipratropium (Duoneb) 3 ml RTQID NEB Last administered on 02/25/19at 07:41; Start 02/24/19 at 16:00 Active Scripts Active Percocet 5-325 Mg Tablet (Oxycodone/Acetaminophen) 1 Each Tablet 1 Tab PO PRN Q6HRS PRN MDD 1 Chlorthalidone (Chlorthalidone) 25 Mg Tablet 25 Mg PO DAILY MDD 1 Aspirin Ec (Aspirin) 325 Mg Tablet.dr 325 Mg PO DAILYWBKFT MDD 1 Lisinopril 40 Mg Tablet 20 Mg PO DAILY MDD 1 Atorvastatin Calcium 20 Mg Tablet 20 Mg PO QHS MDD 1 [Nicotine 7MG] 1 PATCH Patch 1 Patch TD PRN DAILY PRN Flomax (Tamsulosin Hcl) 0.4 Mg Cap.er.24h 1 Cap PO DAILY 30 Days Reported Fluoxetine Hcl 20 Mg Capsule 1 Cap PO DAILY Metformin Hcl 500 Mg Tablet 500 Mg PO BIDWMEALS Amitriptyline Hcl 25 Mg Tablet 1 Tab PO QHS Protonix (Pantoprazole Sodium) 20 Mg Tablet. 2 Tab PO DAILY Allergies Allergies: Coded Allergies: Penicillins (Verified Allergy, Intermediate, 05/30/15) Physical Exam General: Alert HEENT: Atraumatic Extremities: No tenderness/swelling (tenderness to palpation over left shoulder anterior aspect with pain on ROM of left shoulder.) Neuro: Normal gait, Normal speech, Strength at 5/5 X4 ext, Normal tone, Sensation intact, Cranial nerves 3-12 NL, Reflexes 2+, Other Psych/Mental Status: Mental status NL MUSCULOSKELETAL: Other (Tenderness to palpation over left shoulder anterior aspect and also over lower cervical paraspinal and upper trapezius muscles bilaterally and pain free ROM of cervical spine without any muscle spasm.) Vitals VITALS Vital Signs Date Time Temp Pulse Resp B/P (MAP) Pulse Ox O2 Delivery O2 Flow Rate FiO2 02/25/19 09:49 Room Air 02/25/19 08:17 64 129/71 02/25/19 07:00 97.8 18 98 97.8 Labs Labs Laboratory Tests Test 02/23/19 13:15 02/23/19 15:01 02/23/19 17:15 02/23/19 20:42 Urine Opiates Screen Pos (NEG) Urine Methadone Screen Neg (NEG) Urine Barbiturates Neg (NEG) Urine Phencyclidine Screen Neg (NEG) Urine Amphetamine/Methamphetamine Neg (NEG) Urine Benzodiazepines Screen Neg (NEG) Urine Cocaine Screen Pos (NEG) Urine Cannabinoids Screen Neg (NEG) Urine Ethyl Alcohol Neg (NEG) Lactic Acid Level 1.6 mmol/L (0.4-2.0) Troponin I Quantitative < 0.017 ng/mL (0.000-0.055) Glucose (Fingerstick) 158 mg/dL (70-99) Test 02/24/19 04:00 02/24/19 07:26 02/24/19 11:48 02/24/19 16:42 White Blood Count 12.6 x10^3/uL (4.0-11.0) Red Blood Count 5.55 x10^6/uL (4.30-5.70) Hemoglobin 15.9 g/dL (13.0-17.5) Hematocrit 48.8 % (39.0-53.0) Mean Corpuscular Volume 88 fL (79-100) Mean Corpuscular Hemoglobin 29 pg (25-35) Mean Corpuscular Hemoglobin Concent 33 g/dL (31-37) Red Cell Distribution Width 14.5 % (11.5-14.5) Platelet Count 199 x10^3/uL (140-400) Neutrophils (%) (Auto) 84 % (31-73) Lymphocytes (%) (Auto) 11 % (24-48) Monocytes (%) (Auto) 5 % (0-9) Eosinophils (%) (Auto) 0 % (0-3) Basophils (%) (Auto) 0 % (0-3) Neutrophils # (Auto) 10.6 x10^3uL (1.8-7.7) Lymphocytes # (Auto) 1.4 x10^3/uL (1.0-4.8) Monocytes # (Auto) 0.6 x10^3/uL (0.0-1.1) Eosinophils # (Auto) 0.0 x10^3/uL (0.0-0.7) Basophils # (Auto) 0.0 x10^3/uL (0.0-0.2) Sodium Level 136 mmol/L (136-145) Potassium Level 4.6 mmol/L (3.5-5.1) Chloride Level 101 mmol/L (98-107) Carbon Dioxide Level 25 mmol/L (21-32) Anion Gap 10 (6-14) Blood Urea Nitrogen 19 mg/dL (8-26) Creatinine 1.3 mg/dL (0.7-1.3) Estimated GFR (Cockcroft-Gault) 71.3 Glucose Level 144 mg/dL (70-99) Calcium Level 9.2 mg/dL (8.5-10.1) Triglycerides Level 87 mg/dL (0-150) Cholesterol Level 203 mg/dL (0-200) LDL Cholesterol, Calculated 146 mg/dL (0-100) VLDL Cholesterol, Calculated 17 mg/dL (0-40) Non-HDL Cholesterol Calculated 163 mg/dL (0-129) HDL Cholesterol 40 mg/dL (40-60) Cholesterol/HDL Ratio 5.1 Glucose (Fingerstick) 126 mg/dL (70-99) 103 mg/dL (70-99) 130 mg/dL (70-99) Test 02/24/19 19:25 02/25/19 07:23 Glucose (Fingerstick) 106 mg/dL (70-99) 105 mg/dL (70-99) Laboratory Tests Test 02/24/19 11:48 02/24/19 16:42 02/24/19 19:25 02/25/19 07:23 Glucose (Fingerstick) 103 mg/dL (70-99) 130 mg/dL (70-99) 106 mg/dL (70-99) 105 mg/dL (70-99) Images Images I have reviewed CT scan of his neck which revealed straightening of cervical spine with narrowing of C5-C6 disc space with anterior osteophytes at that level. Assessment/Plan Assessment/Plan Sprain and tendinitis of left shoulder. DDD and DJD of cervical vertebrae with cervical paraspinal and upper trapezius muscle strain. No clinical evidence of cervical radiculopathy or Rotator cuff lesion. REC:To try prednisone orally as he was told not to take NSAIDs secondary to his hypertension.I have instructed him in a home program of physical modalities,trigger point massage and relaxed stretchng exercises to cervical paraspinal and upper trapezius muscles,instructions in Codman's exercises to left shoulder and avoid any activity that irritates his neck and shoulder. MERY RICE MD Feb 25, 2019 11:50
--- NOTE | 2019-02-25 12:11 | NUR ---
Patient discharged home self care. Patient understands discharge instructions. Patient given new prescriptions and doctor's note for work. Patient given Dr. Harrell and Dr. Liagn's information for additional needs after discharge. Patient alert and stable upon discharge. IV discontinued. Belongings with patient upon discharge. Picked up by son.
--- NOTE | 2019-02-26 00:30 | CONS ---
DATE OF CONSULTATION: LOCATION: He is in room 521. ATTENDING PHYSICIAN: Liz Aldridge M.D. REASON FOR CONSULTATION: The patient was seen at the request of Dr. Nova for evaluation about his left shoulder pain. 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 The patient was admitted on 02/23/2019 with acute dyspnea, some chest pain and transient left-sided weakness. The patient with known hypertension, tobacco use and gastroesophageal reflux disease. Blood pressure is not under good control. He woke up with shortness of breath at around 04:00 a.m. on the day of admission, on 02/23/2019. Later, he noted left shoulder pain and then left-sided weakness in his arm and leg, which was better at the time of admission. Poor mobility for about 20 minutes. He reports of having similar problem on the right side about a month ago. The patient is being followed by his family physician, at [place]. PAST MEDICAL HISTORY: Includes osteoarthritis. FAMILY HISTORY: Coronary artery disease and cerebrovascular accident with parents and grandparents. SOCIAL HISTORY: He smokes less than 1 pack of cigarettes per day. REVIEW OF SYSTEMS: He denies any significant neck or back pain. The patient could not take any anti-inflammatory medications secondary to it inferring with his blood pressure control. The patient denies any numbness or weakness in the extremities. The patient lives with his family in [facility]. ALLERGIES: HE IS KNOWN ALLERGIC TO PENICILLIN. PHYSICAL EXAMINATION: GENERAL: Today revealed a middle-aged male. He is alert, in no acute distress. MUSCULOSKELETAL: He had tenderness to palpation at the left shoulder anterior aspect, with pain on resist to range of motion, but he had 5/5 grade muscle strength in his upper and lower extremities and deep tendon reflexes are 1 to 2+ and symmetrical. He had pain-free range of motion of his cervical spine. ASSESSMENT: A middle-aged male with recent-onset left shoulder sprain with associated tendinitis. No clinical evidence of rotator cuff lesion or any significant degenerative joint disease changes or left cervical radiculopathy. RECOMMENDATIONS: As he just started having this problem in the last 2 days, I have given him prescription for prednisone 10 mg 1 p.o. daily for about 2 weeks, to be taken with food as long as it does not irritate his stomach. I advised him on home program of physical modalities and stretching exercises and Codman's exercise to his left shoulder and avoid any activity that irritates his left shoulder and also avoid protecting his left shoulder too much as it can make him develop adhesive capsulitis of the shoulder. The patient was advised to come and see me or his family physician for followup. If his left shoulder persists, to consider steroid injection. Dr. Nova, I appreciate asking me to participate in the care of this interesting patient. I will be glad to follow him with you as needed for the rehabilitation. MERY RICE MD DR: SUKHJINDER/ferny JOB#: [id number] / [id number]
== END 2019-02-25 12:19 | disposition home or self-care (01) | DRG 78 ==
LOC: ER 10:49 → 5 NORTH 12:38 → 6 SOUTH 18:51 → 5 NORTH 02-24 15:56
PROVIDERS: ADMIT Internal Medicine; ATTEND Internal Medicine
DX: I67.4 Hypertensive encephalopathy (principal); Z68.42 Body mass index [BMI] 45.0-49.9, adult; F32.9 Major depressive disorder, single episode, unspecified; M19.90 Unspecified osteoarthritis, unspecified site; F17.210 Nicotine dependence, cigarettes, uncomplicated; K21.9 Gastro-esophageal reflux disease without esophagitis; I12.9 Hypertensive chronic kidney disease with stage 1 through stage 4 chronic kidney disease, or unspecified chronic kidney disease; E66.01 Morbid (severe) obesity due to excess calories; F14.10 Cocaine abuse, uncomplicated; N18.9 Chronic kidney disease, unspecified; F10.20 Alcohol dependence, uncomplicated; N40.0 Benign prostatic hyperplasia without lower urinary tract symptoms; S43.402A Unspecified sprain of left shoulder joint, initial encounter; X58.XXXA Exposure to other specified factors, initial encounter; M75.92 Shoulder lesion, unspecified, left shoulder; M47.812 Spondylosis without myelopathy or radiculopathy, cervical region; M50.30 Other cervical disc degeneration, unspecified cervical region; F41.9 Anxiety disorder, unspecified; E11.22 Type 2 diabetes mellitus with diabetic chronic kidney disease; G89.29 Other chronic pain; Z88.0 Allergy status to penicillin; Z82.49 Family history of ischemic heart disease and other diseases of the circulatory system; Z82.3 Family history of stroke; Z79.1 Long term (current) use of non-steroidal anti-inflammatories (NSAID); Y93.89 Activity, other specified; Y92.89 Other specified places as the place of occurrence of the external cause; Y99.8 Other external cause status; T58.91XA Toxic effect of carbon monoxide from unspecified source, accidental (unintentional), initial encounter
CPT/HCPCS: 36415; 36600; 70496; 70498; 70551; 71045; 73030; 73560; 80048; 80053; 80061; 80307; 82553; 82805; 82962; 83036; 83605; 83735; 83880; 84443; 84484; 85025; 85379; 85610; 87040; 93005; 93306; 94640; 94760; 96374; 96375; 99406; J1650; J1815; J2270; J2930; J7620; Q9967; 92610; 97110; 99285-25

== ENCOUNTER 2019-07-12 08:10 | Emergency (ER) | payer BC ==
[~2019-07-12] VITALS: Ht 180.3 cm; Wt 138.3 kg
[~2019-07-12 08:10] MED LIST changes: +AMIT25TA PO; +ASPI325T11 PO; +ATOR20TA58 PO; +CHLO25TA10 PO; +FLUO20CA8 PO; +HYDR-2145 PO; +LISI-130 PO; +METF500T16 PO; +Nicotine 7MG TD; +OXYC1TAB15 PO; +PANT20TA2 PO
--- NOTE | 2019-07-12 08:56 | PHYS DOC ---
Past Medical History Past Medical History: Depression, Diabetes-Type II, GERD, Hypertension Past Surgical History: Other Additional Past Surgical Histo: Lesion removed from head, LEFT HAND Smoking: Cigarettes Alcohol Use: Occasionally Drug Use: Cocaine Adult General Chief Complaint Chief Complaint: RECTAL BLEED HPI HPI Patient is a 48-year-old male who presents to the emergency department for evaluation. He states for the past 3 weeks he has been having bright red blood per rectum, usually with bowel movements, but occasionally without having bowel movements. He does report some generalized perirectal pain. He denies any abdominal pain, dizziness or lightheadedness, nausea, or vomiting. There are no alleviating or exacerbating factors to his symptoms. He states he does take an aspirin daily secondary to having a "mini stroke" in the past. He also drinks on a daily basis, having about 2 beers and a shot of vodka daily. There are no alleviating or exacerbating factors to his symptoms except as noted above. The patient also does report having some purulent, foul-smelling drainage at times from his rectal area. Review of Systems Review of Systems Constitutional: Denies fever or chills [] Eyes: Denies change in visual acuity, redness, or eye pain [] HENT: Denies nasal congestion or sore throat [] Respiratory: Denies cough or shortness of breath [] Cardiovascular:The patient denies any shortness of breath, chest pain, palpitations, or orthopnea [] GI: Denies abdominal pain, nausea, vomiting, or diarrhea [] : Denies dysuria or hematuria [] Musculoskeletal: Denies back pain or joint pain [] Integument: Denies rash or skin lesions [] Neurologic: Denies headache, focal weakness or sensory changes [] Endocrine: Denies polyuria or polydipsia [] All other systems were reviewed and found to be within normal limits, except as documented in this note. Current Medications Current Medications Current Medications Medications (Trade) Dose Ordered Sig/Gina Start Time Stop Time Status Last Admin Dose Admin Info (CONTRAST GIVEN -- Rx MONITORING) 1 each PRN DAILY PRN 07/12/19 09:45 07/14/19 09:44 Iohexol (Omnipaque 300 Mg/ml) 75 ml 1X ONCE 07/12/19 09:30 07/12/19 09:31 DC 07/12/19 10:05 75 ML Allergies Allergies Allergies Coded Allergies Type Severity Reaction Last Updated Verified Penicillins Allergy Intermediate 05/30/15 Yes Physical Exam Physical Exam PHYSICAL EXAM: CONSTITUTIONAL: Well developed, well nourished HEAD: normocephalic, atraumatic EENT: PERRL, EOMI. Conjunctivae normal color, sclerae non-icteric; moist mucous membranes. NECK: Supple, non-tender; no meningismus. LUNGS: Lungs CTA, breathing even and unlabored. Normal air movement. HEART: Regular rate and rhythm, no murmur CHEST: No deformity; non-tender ABDOMEN: The abdomen is soft, and non-tender, no masses or bruits. EXTREM: Normal ROM; no deformity, no calf tenderness. Normal pulses palpable in all extremities. There is no pedal edema. SKIN: No rash; no diaphoresis NEURO: Alert; normal speech and cognition; CN's grossly intact; strength grossly intact without focal deficit. BACK: No CVA TTP. RECTAL EXAM: Perianal inspection is normal. There is no hemorrhoid or perianal abscess visualized. There is some tenderness to palpation anteriorly/laterally to the left on rectal exam, without any definite palpable mass. The prostate is nontender. There is no gross blood present. Exam was performed in the presence of the ER nurse, Emmy. Current Patient Data Vital Signs Vital Signs Date Time Temp Pulse Resp B/P (MAP) Pulse Ox O2 Delivery O2 Flow Rate FiO2 07/12/19 08:20 97.9 109 16 188/112 (137) 98 Room Air 97.9 Lab Values Laboratory Tests Test 07/12/19 08:54 07/12/19 09:04 Stool Occult Blood Positive (NEG) White Blood Count 8.7 x10^3/uL (4.0-11.0) Red Blood Count 5.33 x10^6/uL (4.30-5.70) Hemoglobin 15.2 g/dL (13.0-17.5) Hematocrit 46.2 % (39.0-53.0) Mean Corpuscular Volume 87 fL (79-100) Mean Corpuscular Hemoglobin 29 pg (25-35) Mean Corpuscular Hemoglobin Concent 33 g/dL (31-37) Red Cell Distribution Width 14.1 % (11.5-14.5) Platelet Count 250 x10^3/uL (140-400) Neutrophils (%) (Auto) 60 % (31-73) Lymphocytes (%) (Auto) 31 % (24-48) Monocytes (%) (Auto) 6 % (0-9) Eosinophils (%) (Auto) 2 % (0-3) Basophils (%) (Auto) 1 % (0-3) Neutrophils # (Auto) 5.2 x10^3/uL (1.8-7.7) Lymphocytes # (Auto) 2.7 x10^3/uL (1.0-4.8) Monocytes # (Auto) 0.6 x10^3/uL (0.0-1.1) Eosinophils # (Auto) 0.2 x10^3/uL (0.0-0.7) Basophils # (Auto) 0.1 x10^3/uL (0.0-0.2) Prothrombin Time 12.9 SEC (11.7-14.0) Prothrombin Time INR 1.0 (0.8-1.1) Activated Partial Thromboplast Time 25 SEC (24-38) Sodium Level 140 mmol/L (136-145) Potassium Level 3.9 mmol/L (3.5-5.1) Chloride Level 105 mmol/L (98-107) Carbon Dioxide Level 27 mmol/L (21-32) Anion Gap 8 (6-14) Blood Urea Nitrogen 19 mg/dL (8-26) Creatinine 1.5 mg/dL (0.7-1.3) H Estimated GFR (Cockcroft-Gault) 60.4 BUN/Creatinine Ratio 13 (6-20) Glucose Level 118 mg/dL (70-99) H Calcium Level 9.1 mg/dL (8.5-10.1) Total Bilirubin 0.2 mg/dL (0.2-1.0) Aspartate Amino Transferase (AST) 15 U/L (15-37) Alanine Aminotransferase (ALT) 21 U/L (16-63) Alkaline Phosphatase 68 U/L (46-116) Total Protein 7.7 g/dL (6.4-8.2) Albumin 3.5 g/dL (3.4-5.0) Albumin/Globulin Ratio 0.8 (1.0-1.7) L Laboratory Tests 07/12/19 09:04 Laboratory Tests 07/12/19 09:04 EKG EKG [] Radiology/Procedures Radiology/Procedures PROCEDURE: CT PELVIS W/CONTRAST CT of the pelvis with contrast 07/12/2019 INDICATION: Rectal pain. Possible purulent drainage. COMPARISON STUDY: None available TECHNIQUE: Multidetector CT imaging of the pelvis was performed following the administration of IV contrast. FINDINGS: The appendix is visualized and normal. No definitive bowel wall thickening or pericolonic/rectal inflammatory changes identified. No evidence of a pericolonic or perianal abscess is identified. Evaluation of the bowel is limited secondary to probably decompressed state and lack of enteric contrast. No free fluid or free air is seen in the internal pelvis. The bladder is unremarkable. No acute osseous changes are seen. IMPRESSION: 1. No acute pelvic abnormality by CT 2. Limited evaluation of the sigmoid colon and rectum demonstrates no gross of normality. Given exam limitations, recommend correlation with clinical exam findings and endoscopy if clinically indicated. [] Course & Med Decision Making Course & Med Decision Making Pertinent Labs and Imaging studies reviewed. (See chart for details) []11:00 AM: The patient's condition remains stable. I discussed test results with the patient, the need for close GI follow-up for further outpatient evaluation, the differential diagnosis of rectal bleeding was discussed with the patient, including malignancy, and the importance of close follow-up with definitive treatment was stressed. Return precautions were also discussed in detail. Dragon Disclaimer Dragon Disclaimer This electronic medical record was generated, in whole or in part, using a voice recognition dictation system. Departure Departure Impression: Primary Impression: Rectal pain Additional Impression: Rectal bleeding Disposition: 01 HOME, SELF-CARE Condition: STABLE Referrals: LUBNA HU MD Patient Instructions: Rectal Bleeding Problem Qualifiers MARILIN FERRERA MD Jul 12, 2019 08:56
[2019-07-12 09:19] LABS: BASO # 0.1 x10^3/uL (0.0-0.2); BASO % 1 % (0-3); EOS # 0.2 x10^3/uL (0.0-0.7); EOS % 2 % (0-3); HEMATOCRIT 46.2 % (39.0-53.0); HEMOGLOBIN 15.2 g/dL (13.0-17.5); LYMPH # 2.7 x10^3/uL (1.0-4.8); LYMPH % 31 % (24-48); MEAN CORPUSCULAR HEMOGLOBIN 29 pg (25-35); MEAN CORPUSCULAR HGB CONC 33 g/dL (31-37); MEAN CORPUSCULAR VOLUME 87 fL (79-100); MONO # 0.6 x10^3/uL (0.0-1.1); MONO % 6 % (0-9); NEUT # 5.2 x10^3/uL (1.8-7.7); NEUT % 60 % (31-73); PLATELET COUNT 250 x10^3/uL (140-400); RED BLOOD COUNT 5.33 x10^6/uL (4.30-5.70); RED CELL DISTRIBUTION WIDTH 14.1 % (11.5-14.5); WHITE BLOOD COUNT 8.7 x10^3/uL (4.0-11.0)
[2019-07-12 09:29] LABS: PROTHROMBIN TIME PATIENT 12.9 SEC (11.7-14.0)
[2019-07-12] MEDS ORDERED: IOHEXOL 300 MG/ML 100ML VIAL. IV ONE ×2 (09:30→10:00)
[2019-07-12 09:33] LABS: CALCIUM 9.1 mg/dL (8.5-10.1); CREATININE 1.5 mg/dL (0.7-1.3); GFR 60.4; POTASSIUM 3.9 mmol/L (3.5-5.1)
[2019-07-12 09:35] LABS: FECAL OB PT POSITIVE (NEG)
[2019-07-12 09:38] LABS: ALBUMIN 3.5 g/dL (3.4-5.0); ALBUMIN/GLOBULIN RATIO 0.8 (1.0-1.7); TOTAL BILIRUBIN 0.2 mg/dL (0.2-1.0); TOTAL PROTEIN 7.7 g/dL (6.4-8.2)
[2019-07-12] MEDS ORDERED: CONTRAST GIVEN. MC PRN (09:45)
--- NOTE | 2019-07-12 10:54 | RAD ---
CT of the pelvis with contrast 07/12/2019 INDICATION: Rectal pain. Possible purulent drainage. COMPARISON STUDY: None available TECHNIQUE: Multidetector CT imaging of the pelvis was performed following the administration of IV contrast. FINDINGS: The appendix is visualized and normal. No definitive bowel wall thickening or pericolonic/rectal inflammatory changes identified. No evidence of a pericolonic or perianal abscess is identified. Evaluation of the bowel is limited secondary to probably decompressed state and lack of enteric contrast. No free fluid or free air is seen in the internal pelvis. The bladder is unremarkable. No acute osseous changes are seen. IMPRESSION: 1. No acute pelvic abnormality by CT 2. Limited evaluation of the sigmoid colon and rectum demonstrates no gross of normality. Given exam limitations, recommend correlation with clinical exam findings and endoscopy if clinically indicated. CT DOSING PQRS STATEMENT: One or more of the following individualized dose reduction techniques were utilized for this examination: 1. Automated exposure control 2. Adjustment of the mA and/or kV according to patient size 3. Use of iterative reconstruction technique Electronically signed by: Colton Mera MD (07/12/2019 10:51 AM) [id number]
[2019-07-12 11:05] VITALS: BP 150/83
== END 2019-07-12 11:47 | disposition home or self-care (01) ==
LOC: ER 08:10
DX: K62.5 Hemorrhage of anus and rectum (principal); K62.89 Other specified diseases of anus and rectum; K21.9 Gastro-esophageal reflux disease without esophagitis; I10 Essential (primary) hypertension; E11.9 Type 2 diabetes mellitus without complications; F17.210 Nicotine dependence, cigarettes, uncomplicated; Z88.0 Allergy status to penicillin
CPT/HCPCS: 36415; 72193; 80053; 82274; 85025; 85610; 85730; 86850; 86900; 86901; 99285; Q9967

== ENCOUNTER 2021-03-28 17:36 | Emergency (ER) | payer BC ==
[~2021-03-28] VITALS: Ht 177.8 cm; Wt 141.0 kg
[~2021-03-28 17:36] MED LIST changes: +FLUO20CA20 PO; -FLUO20CA8 PO
--- NOTE | 2021-03-28 18:18 | ED.ADGEN ---
Past Medical History Past Medical History: Depression, Diabetes-Type II, GERD, Hypertension Past Surgical History: Other Additional Past Surgical Histo: Lesion removed from head, Left hand surgery with tendon transplant Smoking Status: Current Every Day Smoker Alcohol Use: Heavy Drug Use: Cocaine General Adult EDM: Chief Complaint: WEAKNESS/GENERALIZED HPI: HPI: Patient is a 50 year old male coming in for altered mental status and passing out yesterday around 1800 (24 hours prior to arrival). History of probably brought by as patient is a poor historian. She states that he has been having increased confusion. 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 Patient has a history of diabetes and hypertension but has not been taking his Metformin or hydrochlorothiazide for approximately 6 months. Denies any cardiac history. Smokes cigarettes, denies any alcohol or drug use. Patient denies any chest pain, headaches or other symptoms than dyspnea today. Patient has received both doses of his Covid vaccine but is unsure of which vaccine he received Review of Systems: Review of Systems: All other systems within normal limits except for as noted in the HPI Allergies: Allergies: Allergies Coded Allergies Type Severity Reaction Last Updated Verified Penicillins Allergy Intermediate 05/30/15 Yes Physical Exam: PE: Constitutional: Well developed, well nourished, no acute distress, non-toxic appearance. [] HENT: Normocephalic, atraumatic, bilateral external ears normal, nose normal. [] Eyes: PERRLA, conjunctiva normal, no discharge. [] Neck: No rigidity, supple, no stridor. [] Cardiovascular: Regular rate and rhythm, brisk cap refill [] Lungs & Thorax: Non labored symmetric respirations, no tachypnea or respiratory distress [] Abdomen: Soft, nondistended. Skin: Warm, dry, no erythema, no rash. [] Back: Unremarkable Extremities: No deformities, range of motion grossly intact, no lower extremity edema [] Neurologic: Alert and oriented X 3, no focal deficits noted. [] Psychologic: Affect normal, judgement normal, mood normal. [] Current Patient Data: Labs: Laboratory Tests Test 03/28/21 18:45 03/28/21 19:15 03/28/21 20:23 White Blood Count 9.2 x10^3/uL (4.0-11.0) Red Blood Count 5.39 x10^6/uL (4.30-5.70) Hemoglobin 15.4 g/dL (13.0-17.5) Hematocrit 47.4 % (39.0-53.0) Mean Corpuscular Volume 88 fL (79-100) Mean Corpuscular Hemoglobin 29 pg (25-35) Mean Corpuscular Hemoglobin Concent 32 g/dL (31-37) Red Cell Distribution Width 14.2 % (11.5-14.5) Platelet Count 240 x10^3/uL (140-400) Neutrophils (%) (Auto) 62 % (31-73) Lymphocytes (%) (Auto) 26 % (24-48) Monocytes (%) (Auto) 8 % (0-9) Eosinophils (%) (Auto) 2 % (0-3) Basophils (%) (Auto) 1 % (0-3) Neutrophils # (Auto) 5.8 x10^3/uL (1.8-7.7) Lymphocytes # (Auto) 2.4 x10^3/uL (1.0-4.8) Monocytes # (Auto) 0.8 x10^3/uL (0.0-1.1) Eosinophils # (Auto) 0.2 x10^3/uL (0.0-0.7) Basophils # (Auto) 0.1 x10^3/uL (0.0-0.2) Lactic Acid Level 0.8 mmol/L (0.4-2.0) Sodium Level 140 mmol/L (136-145) Potassium Level 4.5 mmol/L (3.5-5.1) Chloride Level 107 mmol/L (98-107) Carbon Dioxide Level 25 mmol/L (21-32) Anion Gap 8 (6-14) Blood Urea Nitrogen 16 mg/dL (8-26) Creatinine 1.3 mg/dL (0.7-1.3) Estimated GFR (Cockcroft-Gault) 70.7 BUN/Creatinine Ratio 12 (6-20) Glucose Level 116 mg/dL (70-99) H Calcium Level 8.9 mg/dL (8.5-10.1) Phosphorus Level 3.9 mg/dL (2.6-4.7) Magnesium Level 2.2 mg/dL (1.8-2.4) Total Bilirubin 0.2 mg/dL (0.2-1.0) Aspartate Amino Transferase (AST) 20 U/L (15-37) Alanine Aminotransferase (ALT) 20 U/L (16-63) Alkaline Phosphatase 54 U/L (46-116) Troponin I Quantitative < 0.017 ng/mL (0.000-0.055) LV-Msy-Q-Type Natriuretic Peptide 40 pg/mL (0-124) Total Protein 6.9 g/dL (6.4-8.2) Albumin 3.3 g/dL (3.4-5.0) L Albumin/Globulin Ratio 0.9 (1.0-1.7) L Thyroid Stimulating Hormone (TSH) 0.379 uIU/mL (0.358-3.74) Urine Collection Type Unknown Urine Color Yellow Urine Clarity Clear Urine pH 6.0 (<5.0-8.0) Urine Specific [place] 1.020 (1.000-1.030) Urine Protein Negative mg/dL (NEG-TRACE) Urine Glucose (UA) Negative mg/dL (NEG) Urine Ketones (Stick) Negative mg/dL (NEG) Urine Blood Negative (NEG) Urine Nitrite Negative (NEG) Urine Bilirubin Negative (NEG) Urine Urobilinogen Dipstick 0.2 mg/dL (0.2 mg/dL) Urine Leukocyte Esterase Negative (NEG) Urine RBC 0 /HPF (0-2) Urine WBC 0 /HPF (0-4) Urine Squamous Epithelial Cells Occ /LPF Urine Bacteria 0 /HPF (0-FEW) Urine Opiates Screen Neg (NEG) Urine Methadone Screen Neg (NEG) Urine Barbiturates Neg (NEG) Urine Phencyclidine Screen Neg (NEG) Urine Amphetamine/Methamphetamine Neg (NEG) Urine Benzodiazepines Screen Neg (NEG) Urine Cocaine Screen Pos (NEG) Urine Cannabinoids Screen Pos (NEG) Urine Ethyl Alcohol Neg (NEG) Laboratory Tests 03/28/21 18:45 Laboratory Tests 03/28/21 19:15 Vital Signs: Vital Signs Date Time Temp Pulse Resp B/P (MAP) Pulse Ox O2 Delivery O2 Flow Rate FiO2 03/28/21 19:00 98.5 72 16 161/80 (105) 98 Room Air 98.5 EKG: EKG: Sinus rhythm, heart racing beats per minute, normal axis, no ST elevation or dep ression, no ectopy nonspecific T wave changes [] Heart Score: C/O Chest Pain: No HEART Score for Chest Pain: HEART Score for Chest Pain Response (Comments) Value History Slighlty/Non-Suspicious 0 ECG Normal 0 Age >45 - < 65 1 Risk Factors 1 or 2 Risk Factors 1 Troponin < Normal Limit 0 Total 2 Risk Factors: Risk Factors: DM, Current or recent (<one month) smoker, HTN, HLP, family history of CAD, obesity. Risk Scores: Score 0 - 3: 2.5% MACE over next 6 weeks - Discharge Home Score 4 - 6: 20.3% MACE over next 6 weeks - Admit for Clinical Observation Score 7 - 10: 72.7% MACE over next 6 weeks - Early Invasive Strategies Radiology/Procedures: Radiology/Procedures: [address] [address] IMAGING REPORT Signed PATIENT: JENNIFER KWONG DACCOUNT: [id number] : 1970 LOCATION: ER AGE: 50 SEX: M EXAM STATUS: PRE ER ORD. PHYSICIAN: TALYA BRAVO MD REASON: dyspnea PROCEDURE: CHEST AP ONLY EXAM: AP View of the chest DATE: 03/28/2021 6:34 PM INDICATION: Reason: dyspnea / Spl. Instructions: / History: COMPARISON: No Prior FINDINGS: The heart is not enlarged. Mediastinal and hilar contours are normal. Patchy opacities peripheral left lung base likely atelectasis or consolidation. No pleural effusion or pneumothorax. IMPRESSION: 1. Patchy opacities peripheral left lung base likely atelectasis or consolidation. Electronically signed by: Dayron Starr MD (03/28/2021 7:19 PM) [facility] SIGNED BY: DAYRON STARR MD DATE: 03/28/21 [id number] [][address] [address] IMAGING REPORT Signed PATIENT: JENNIFER KWONG DACCOUNT: [id number] : 1970 LOCATION: ER AGE: 50 SEX: M EXAM STATUS: PRE ER ORD. PHYSICIAN: TALYA BRAVO MD REASON: passed out, ams, htn PROCEDURE: CT HEAD WO CONTRAST EXAMINATION: CT HEAD/BRAIN WO (CT HEAD WITHOUT IV CONTRAST) CLINICAL HISTORY: Passed out, ams, htn TECHNIQUE: Serial axial images without IV contrast were obtained from the vertex to the foramen magnum. CT Dose Reduction Employed: One or more of the following individualized dose reduction techniques were utilized for this examination: 1. Automated exposure control 2. Adjustment of the mA and/or kV according to patient size 3. Use of iterative reconstruction technique. COMPARISON: CTA head/neck 02/23/2019 FINDINGS: Acute Change: No evidence of an acute infarct or other acute parenchymal process. Hemorrhage: No evidence of acute intracranial hemorrhage. Mass Lesion/Mass Effect: No evidence of intracranial mass or extraaxial fluid collection. No significant mass effect. Chronic Change: Scattered patchy foci of hypoattenuation in the supratentorial white matter, nonspecific but likely represents minimal microvascular ischemia. Parenchyma: No significant volume loss. Parenchyma otherwise within normal limits for age. Ventricles: Ventricles within normal limits for age. Paranasal Sinuses and Skull Base: Visualized paranasal sinuses clear. Visualized skull base and soft tissues unremarkable. Subcutaneous nodularity, similar to prior study. IMPRESSION: No evidence of acute intracranial abnormality. Electronically signed by: Harjinder Weston DO (03/28/2021 6:37 PM) [facility] and SIGNED BY: HARJINDER WESTON DO DATE: 03/28/21 [id number] Course & Med Decision Making: Course & Med Decision Making Pertinent Labs and Imaging studies reviewed. (See chart for details) Of admission for further evaluation of syncope, patient does not want stay in the hospital. Discussed that we will go ahead and prescribe his home dose of hydrochlorothiazide and he was given information to follow-up with primary care provider in 1 to 2 weeks to recheck his blood pressure and for routine medical management [] Abelino Disclaimer: Abelino Disclaimer: This electronic medical record was generated, in whole or in part, using a voice recognition dictation system. Departure Departure Impression: Primary Impression: Hypertension Additional Impression: Syncope Disposition: HOME / SELF CARE / HOMELESS Condition: STABLE Referrals: UNKNOWN PCP NAME (PCP) Patient Instructions: Hypertension Scripts Hydrochlorothiazide (HYDROCHLOROTHIAZIDE TABLET ) 25 Mg Tablet 25 MG PO DAILY for DIURETIC for 30 Days, #30 TAB 0 Refills Prov: TALYA BRAVO MD 03/28/21 Problem Qualifiers TALYA BRAVO MD Mar 28, 2021 18:18
--- NOTE | 2021-03-28 18:19 | EKG ---
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
--- NOTE | 2021-03-28 18:40 | RAD ---
EXAMINATION: CT HEAD/BRAIN WO (CT HEAD WITHOUT IV CONTRAST) CLINICAL HISTORY: Passed out, ams, htn TECHNIQUE: Serial axial images without IV contrast were obtained from the vertex to the foramen magnu m. CT Dose Reduction Employed: One or more of the following individualized dose reduction techniques wer e utilized for this examination: 1. Automated exposure control 2. Adjustment of the mA and/or kV ac cording to patient size 3. Use of iterative reconstruction technique. COMPARISON: CTA head/neck 02/23/2019 FINDINGS: Acute Change: No evidence of an acute infarct or other acute parenchymal process. Hemorrhage: No evidence of acute intracranial hemorrhage. Mass Lesion/Mass Effect: No evidence of intracranial mass or extraaxial fluid collection. No signific ant mass effect. Chronic Change: Scattered patchy foci of hypoattenuation in the supratentorial white matter, nonspeci fic but likely represents minimal microvascular ischemia. Parenchyma: No significant volume loss. Parenchyma otherwise within normal limits for age. Ventricles: Ventricles within normal limits for age. Paranasal Sinuses and Skull Base: Visualized paranasal sinuses clear. Visualized skull base and soft tissues unremarkable. Subcutaneous nodularity, similar to prior study. IMPRESSION: No evidence of acute intracranial abnormality. Electronically signed by: Harjinder Botello DO (03/28/2021 6:37 PM) [facility]
[2021-03-28 19:01] LABS: BASO # 0.1 x10^3/uL (0.0-0.2); BASO % 1 % (0-3); EOS # 0.2 x10^3/uL (0.0-0.7); EOS % 2 % (0-3); HEMATOCRIT 47.4 % (39.0-53.0); HEMOGLOBIN 15.4 g/dL (13.0-17.5); LYMPH # 2.4 x10^3/uL (1.0-4.8); LYMPH % 26 % (24-48); MEAN CORPUSCULAR HEMOGLOBIN 29 pg (25-35); MEAN CORPUSCULAR HGB CONC 32 g/dL (31-37); MEAN CORPUSCULAR VOLUME 88 fL (79-100); MONO # 0.8 x10^3/uL (0.0-1.1); MONO % 8 % (0-9); NEUT # 5.8 x10^3/uL (1.8-7.7); NEUT % 62 % (31-73); PLATELET COUNT 240 x10^3/uL (140-400); RED BLOOD COUNT 5.39 x10^6/uL (4.30-5.70); RED CELL DISTRIBUTION WIDTH 14.2 % (11.5-14.5); WHITE BLOOD COUNT 9.2 x10^3/uL (4.0-11.0)
--- NOTE | 2021-03-28 19:22 | RAD ---
EXAM: AP View of the chest DATE: 03/28/2021 6:34 PM INDICATION: Reason: dyspnea / Spl. Instructions: / History: COMPARISON: No Prior FINDINGS: The heart is not enlarged. Mediastinal and hilar contours are normal. Patchy opacities peripheral left lung base likely atelectasis or consolidation. No pleural effusion or pneumothorax. IMPRESSION: 1. Patchy opacities peripheral left lung base likely atelectasis or consolidation. Electronically signed by: Dayron Sandoval MD (03/28/2021 7:19 PM) [facility]
[2021-03-28 19:36] LABS: CALCIUM 8.9 mg/dL (8.5-10.1); CREATININE 1.3 mg/dL (0.7-1.3); GFR 70.7; POTASSIUM 4.5 mmol/L (3.5-5.1)
[2021-03-28 19:43] LABS: ALBUMIN 3.3 g/dL (3.4-5.0); ALBUMIN/GLOBULIN RATIO 0.9 (1.0-1.7); MAGNESIUM 2.2 mg/dL (1.8-2.4); PHOSPHORUS 3.9 mg/dL (2.6-4.7); TOTAL BILIRUBIN 0.2 mg/dL (0.2-1.0); TOTAL PROTEIN 6.9 g/dL (6.4-8.2)
[2021-03-28 20:28] LABS: BILIRUBIN,URINE NEGATIVE (NEG); CLARITY,URINE CLEAR; COLOR,URINE YELLOW; NITRITE,URINE NEGATIVE (NEG); PROTEIN,URINE NEGATIVE (NEG-TRACE); UROBILINOGEN,URINE 0.2 mg/dL (0.2 mg/dL)
[2021-03-28 20:35] LABS: RBC,URINE 0 /HPF (0-2)
[2021-03-28 20:36] LABS: BACTERIA,URINE 0 /HPF (0-FEW); WBC,URINE 0 /HPF (0-4)
[2021-03-28 20:41] LABS: BARBITURATES NEG (NEG); BENZODIAZEPINES NEG (NEG); CANNABINOIDS POS (NEG); COCAINE POS (NEG); METHADONE NEG (NEG); OPIATES NEG (NEG); PHENCYCLIDINE NEG (NEG)
[2021-03-28 20:42] VITALS: BP 148/75
[2021-03-28 20:42] LABS: AMPHETAMINE/METHAMPHETAMINE NEG (NEG)
[2021-03-28] MEDS ORDERED: HYDR-2145 PO (21:03)
== END 2021-03-28 21:23 | disposition home or self-care (01) ==
LOC: ER 17:36
DX: I10 Essential (primary) hypertension (principal); R55 Syncope and collapse; E11.9 Type 2 diabetes mellitus without complications; K21.9 Gastro-esophageal reflux disease without esophagitis; F17.200 Nicotine dependence, unspecified, uncomplicated; F17.210 Nicotine dependence, cigarettes, uncomplicated; F10.20 Alcohol dependence, uncomplicated; Y90.9 Presence of alcohol in blood, level not specified; Z88.0 Allergy status to penicillin
CPT/HCPCS: 36415; 70450; 71045; 80053; 80307; 81001; 83605; 83735; 83880; 84100; 84443; 84484; 85025; 93005; 99285-25

== ENCOUNTER 2021-12-08 17:05 | Emergency (ER) | payer BC ==
[~2021-12-08] VITALS: Ht 177.8 cm; Wt 140.0 kg
[~2021-12-08 17:05] MED LIST changes: -FLUO20CA20 PO; +FLUO20CA22 PO
[2021-12-08] MEDS ORDERED: MORPHINE ER 15 MG TABLET.ER PO PRN (20:00)
[2021-12-08] MEDS ORDERED: SMZ/TMP 800/160MG TABLET. PO ONE (20:00)
[2021-12-08] MEDS ORDERED: IBUPROFEN 200 MG TABLET. PO ONE (20:00)
[2021-12-08] MEDS ORDERED: SULF1TAB24 PO (20:20)
[2021-12-08] MEDS ORDERED: IBUP-1007 PO (20:20)
[2021-12-08] MEDS ORDERED: MORP15TA PO (20:20)
--- NOTE | 2021-12-08 20:20 | PHYS DOC ---
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 He presents with 2 concerns. First, patient notes atraumatic left knee discomfort anteriorly with onset about 6 days ago. 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 States the knee was more swollen and painful a few days ago and that swelling has gone down but discomfort persists. He is able to range the knee without difficulty in all dimensions to the extremes of range of motion. He is able to ambulate with an antalgic gait. He has been taking ibuprofen intermit tently without complete relief of symptoms. Second, patient notes longstanding chronic problems with recurrent small areas of cellulitis to his perineum. States he has a small lesion there right now which has been bothering him for a few days. Requests something to help. Patient denies fevers, nausea or vomiting, shortness of breath or chest pain of any kind, abdominal pain of any kind, flank pain, midline back pain, dysuria, hematuria, polyuria or oliguria, changes in bowel habits, pain or swelling to arms or legs aside from to the anterior left knee.. Review of Systems Review of Systems A 12 point review of systems was completed and was negative except where noted in HPI above. Current Medications Current Medications Current Medications Medications (Trade) Dose Ordered Sig/Gina Start Time Stop Time Status Last Admin Dose Admin Ibuprofen (Motrin) 600 mg 1X ONCE 12/08/21 20:00 12/08/21 20:01 DC 12/08/21 20:17 600 MG Morphine Sulfate (Ms Contin) 15 mg 1X PRN 12/08/21 20:00 12/08/21 20:45 15 MG Trimethoprim/ Sulfamethoxazole (Bactrim Ds) 1 tab 1X ONCE 12/08/21 20:00 12/08/21 20:01 DC 12/08/21 20:17 1 TAB Allergies Allergies Allergies Coded Allergies Type Severity Reaction Last Updated Verified Penicillins Allergy Intermediate 12/08/21 Yes Physical Exam Physical Exam 51-year-old male appearing nontoxic and in no acute distress. Head is normocephalic and atraumatic. Neck is supple and nontender. Oropharynx is moist. Lungs are clear to auscultation at all stations. There is a normal S1 and S2 without rubs or gallops and capillary refill is appropriate, less than 2 seconds globally. Abdomen is soft, nontender and nondistended. Skin is warm and dry without cyanosis, clubbing or edema. Psychiatrically, the patient demonstrates appropriate mood and affect and is alert. Evaluation of the genit ourinary region reveals an approximately 1 cm x 1 cm tender superficial indurated region to the central perineum. No fluctuance suggestive of abscess. No crepitance. Examination is suggestive of a small area of cellulitis. No abnormalities of the rectum, scrotum, testes, inguinal region. Evaluation of the extremities reveals BUEs and BLEs neurovascularly intact distally with s trength 5 out of 5, sensation intact light touch in all nerve distributions, radial, DP and PT pulses 2+ and equal bilaterally, capillary refill less than 2 seconds, hands and feet warm and well-perfused. No dependent peripheral edema distally. No calf tenderness or swelling bilaterally. Homans test is negative bilaterally. There is mild tenderness to palpation over the anterior right knee with the suggestion of a small effusion anteriorly. No fusiform swelling of the knee. No erythema of the knee. No limitation in ranging of the knee. No joint irritability of the knee. No discomfort with ranging of any of the joint of the left lower extremity. Current Patient Data Vital Signs Vital Signs Date Time Temp Pulse Resp B/P (MAP) Pulse Ox O2 Delivery O2 Flow Rate FiO2 12/08/21 20:47 87 18 164/96 (118) 97 Room Air 12/08/21 19:24 97.8 97.8 EKG EKG [] Radiology/Procedures Radiology/Procedures XR knee L: No bony abnormality. Small joint effusion. EP preliminary interpretation. Course & Med Decision Making Course & Med Decision Making 51-year-old gentleman, well-appearing, presenting for evaluation of atraumatic knee discomfort which likely reflects osteoarthritis. No evidence of septic joint or other acute infectious process at the knee. Separately, patient has a small area of perennial cellulitis which appears amenable to oral antibiotic therapy. We will plan for discharge with ibuprofen course, a few oral morphine pills for breakthrough pain and a course of Bactrim to address acute on chronic perineal cellulitis. Patient is to follow-up very closely with his primary doctor in the next 2 to 4 days and understands that if he feels worse instead of better or develops other new symptoms of concern that he should return to the emergency department immediately for reevaluation. All questions were answered Abelino Disclaimer Dragbettye Disclaimer This electronic medical record was generated, in whole or in part, using a voice recognition dictation system. Departure Departure Impression: Primary Impression: Acute pain of left knee Additional Impression: Cellulitis of perineum Disposition: HOME / SELF CARE / HOMELESS Condition: GOOD Referrals: CRICKET DE LA TORRE MD (PCP) Patient Instructions: Cellulitis, Knee Pain Additional Instructions: Follow-up very closely with your primary care doctor in the office in the next 2 to 4 days for a reevaluation of your symptoms and a discussion of next best steps in care. Rest, ice and elevate your knee. Take 600 mg of ibuprofen every 6 hours on a schedule for the next 3 to 5 days, and then as needed after that, for pain and swelling. For pain not well controlled with ibuprofen you may take an oral morphine pill every 6 hours as needed. Be careful because oral morphine can make you sleepy so do not drive or work or operate machinery while taking it. It is best for use at nighttime. Take the Bactrim antibiotic for the next 10 days to treat the small area of infection on your groin. Return to the emergency department right away for worsening symptoms of any kind or with any other new symptoms of concern. Scripts Morphine Sulfate (MORPHINE SULFATE) 15 Mg Tablet 1 TAB PO QID, #14 TAB Prov: CARLTON GAN MD 12/08/21 Ibuprofen (IBUPROFEN) 600 Mg Tablet 600 MG PO PRN Q6HRS PRN for PAIN, #40 TAB take with food or milk Prov: CARLTON GAN MD 12/08/21 Sulfamethoxazole/Trimethoprim (BACTRIM DS TABLET) 1 Each Tablet 1 TAB PO BID for infection for 10 Days, #20 TAB Prov: CARLTON GAN MD 12/08/21 Problem Qualifiers CARLTON GAN MD Dec 08, 2021 20:20
[2021-12-08 20:47] VITALS: BP 164/96
--- NOTE | 2021-12-08 21:14 | RAD ---
Exam Date: 12/08/2021 8:09 PM XR KNEE _3 [id number] Indication: Reason: knee pain / Spl. Instructions: / History: . COMPARISON: February 24, 2019 FINDINGS/ IMPRESSION: There is mild medial compartment joint space narrowing. Alignment is maintained. Small osteophytes are noted. No acute fracture or dislocation. There is a joint effusion. Electronically signed by: Milan Zhou MD (12/08/2021 9:11 PM) YOLI
== END 2021-12-08 20:50 | disposition home or self-care (01) ==
LOC: ER 17:05
DX: M25.562 Pain in left knee (principal); L03.315 Cellulitis of perineum; E11.9 Type 2 diabetes mellitus without complications; K21.9 Gastro-esophageal reflux disease without esophagitis; I10 Essential (primary) hypertension; F17.200 Nicotine dependence, unspecified, uncomplicated; E66.01 Morbid (severe) obesity due to excess calories; Z68.41 Body mass index [BMI] 40.0-44.9, adult; Z88.0 Allergy status to penicillin
CPT/HCPCS: 73562; 99284